=== PATIENT | female | born 1970 | race Caucasian/White ===

== ENCOUNTER 2017-10-09 11:42 | Emergency (ER) | payer BC ==
--- NOTE | 2017-10-09 13:50 | EDM.PDOC ---
ED HPI GENERAL MEDICAL PROBLEM - General Chief Complaint: ENT Problem Stated Complaint: L TOOTH PAIN Time Seen by Provider: 10/09/17 13:40 Source of Information: Reports: Patient - History of Present Illness INITIAL COMMENTS - FREE TEXT/NARRATIVE: Lesa presents today with complaints of left upper dental/facial pain for 4 days. She reports use of acetaminophen for pain. Pain is aching and stabbing in nature. She denies difficulty with eating or swallowing, however has sensitivity to liquids. She is unable to take ibuprofen due to gastritis/ulcer history. She has a pending dental appointment. left upper Pain Score (Numeric/FACES): 6 - Related Data Allergies Allergy/AdvReac Type Severity Reaction Status Date / Time nitrofurantoin Allergy Rash Verified 10/09/17 13:23 [From Macrobid] Penicillins Allergy Hives Verified 10/09/17 13:23 pseudoephedrine Allergy Hives Verified 10/09/17 13:23 [From Sudafed] sulfamethoxazole Allergy Hives Verified 10/09/17 13:23 [From Bactrim] trimethoprim [From Bactrim] Allergy Hives Verified 10/09/17 13:23 Home Meds: Home Meds Fenofibrate Nanocrystallized [Fenofibrate] 145 mg PO DAILY 10/09/17 [History] Omeprazole 20 mg PO DAILY 10/09/17 [History] Sertraline HCl [Zoloft] 200 mg PO DAILY 10/09/17 [History] traZODone 50 mg PO BEDTIME 10/09/17 [History] Past Medical History Psychiatric History: Reports: Anxiety, Depression - Past Surgical History GI Surgical History: Reports: Appendectomy, EGD Female Surgical History: Reports: Hysterectomy, Other (See Below) Other Female Surgeries/Procedures: partial hyst, one fallopian tube removed Social & Family History - Tobacco Use Smoking Status *Q: Current Every Day Smoker Years of Tobacco use: 30 Packs/Tins Daily: 0.5 - Recreational Drug Use Recreational Drug Use: No ED ROS ENT - Review of Systems Review Of Systems: See Below Constitutional: Denies: Fever, Chills, Malaise HEENT: Reports: Dental Pain, Other (Dental caries, exposed dentin). Denies: Ear Discharge, Ear Pain, Eye Pain, Nosebleed, Rhinitis, Sinus Problem, Throat Pain, Throat Swelling Respiratory: Reports: No Symptoms Cardiovascular: Reports: No Symptoms Endocrine: Reports: No Symptoms GI/Abdominal: Reports: No Symptoms Musculoskeletal: Reports: No Symptoms Skin: Reports: No Symptoms Neurological: Reports: No Symptoms Psychiatric: Reports: No Symptoms Hematologic/Lymphatic: Reports: No Symptoms Immunologic: Reports: No Symptoms ED EXAM, ENT - Physical Exam Exam: See Below Text/Narrative:: Lesa is an alert, oriented and pleasant 47 year old female presenting today for complaints of worsening dental pain of 4 days. She has a pending dental appointment next week. Use of acetaminophen has assisted with relief, however the pain has increased and she is worried she needs an antibiotic. Exam Limited By: No Limitations General Appearance: Alert, WD/WN, Mild Distress Eye Exam: Bilateral Eye: EOMI, Normal Inspection, PERRL Ears: Normal External Exam, Normal Canal, Hearing Grossly Normal, Normal TMs Nose: Normal Inspection, Normal Mucousa, No Blood Mouth/Throat: Normal Inspection, Normal Lips, Normal Oropharynx, Dental Tenderness, Gum Swelling, Other (dental caries with exposed dentin. swelling to area of #10,11,12,13. No discharge or drainage. Small area of tenderness/ fluctuance to left upper gum at #11,12. ). No: Muffled Voice, Oral Ulcers, Peritonsillar Mass, Pharyngeal Erythema, Tongue Swelling, Tonsillar Exudates, Tonsillar Swelling Head: Atraumatic, Normocephalic Neck: Normal Inspection, Supple, Non-Tender, Full Range of Motion. No: Lymphadenopathy (R), Lymphadenopathy (L) Respiratory/Chest: No Respiratory Distress, Lungs Clear, Normal Breath Sounds, No Accessory Muscle Use, Chest Non-Tender Cardiovascular: Normal Peripheral Pulses, Regular Rate, Rhythm, No Edema, No Gallop, No Murmur Back: Normal Inspection, Full Range of Motion. No: CVA Tenderness (R), CVA Tenderness (L) Extremities: Normal Inspection, Normal Range of Motion, Non-Tender, No Pedal Edema, Normal Capillary Refill Neurological: Alert, Oriented, CN II-XII Intact, Normal Cognition, Normal Gait, No Motor/Sensory Deficits Psychiatric: Normal Affect, Normal Mood Skin: Warm, Dry, Intact, Normal Color, No Rash Lymphatic: No Adenopathy Course - Vital Signs Last Recorded V/S: Last Vital Signs Temp 36.4 C 10/09/17 13:26 Pulse 84 10/09/17 13:26 Resp 16 10/09/17 13:26 BP 133/81 10/09/17 13:26 Pulse Ox 99 10/09/17 13:26 Departure - Departure Time of Disposition: 13:52 Disposition: Home, Self-Care 01 Condition: Fair Clinical Impression: Dental abscess - Discharge Information Instructions: Dental Abscess, [id number] Referrals: Gomez Starks PA-C [Primary Care Provider] - Forms: ED Department Discharge Additional Instructions: You are suffering from dental pain and abscess. Please take clindamycin 300mg by mouth four times a day for 7 days. You will have 4 tablets left. You can take acetaminophen 1000mg three times a day for pain. You can take tramadol as directed for pain if acetaminophen does not work well. Follow up with dentist as instructed. Return for worsening, issues or concerns. - Assessment/Plan Assessment:: Dental Abscess Plan: Patient suffering from dental pain and abscess. Please take clindamycin 300mg by mouth four times a day for 7 days. She will have 4 tablets left that she can discard. She can take acetaminophen 1000mg three times a day for pain. She can take tramadol as directed for pain if acetaminophen does not work well. Follow up with dentist as instructed. Return for worsening, issues or concerns. [place] and surrounding state [employer] checked, appropriate. Tramadol provided.
== END 2017-10-09 14:04 | disposition home or self-care (01) ==
LOC: JP.ED 11:42
DX: K04.7 Periapical abscess without sinus (principal); K02.9 Dental caries, unspecified; F41.9 Anxiety disorder, unspecified; F32.9 Major depressive disorder, single episode, unspecified; F17.210 Nicotine dependence, cigarettes, uncomplicated; Z88.0 Allergy status to penicillin; Z88.2 Allergy status to sulfonamides; Z88.8 Allergy status to other drugs, medicaments and biological substances; Z88.1 Allergy status to other antibiotic agents
CPT/HCPCS: 99283

== ENCOUNTER 2018-07-07 07:37 | Day surgery (SDC) | payer BC ==
[~2018-07-07 07:37] MED LIST: Bupivacaine 0.5% 50 ML MDV ONE; Lidocaine 1% with EPINEPHrine 1:100,000 50 ML MDV ONE
[2018-07-07] MEDS ORDERED: Propofol 200 MG/20 ML SDV ONE (08:04)
[2018-07-07] MEDS ORDERED: Ondansetron 4 MG/2 ML SDV ONE (08:04)
[2018-07-07] MEDS ORDERED: fentaNYL 250 MCG/5 ML SDV ONE (08:04)
[2018-07-07] MEDS ORDERED: Rocuronium 50 MG/5 ML Vial ONE (08:04)
[2018-07-07] MEDS ORDERED: Neostigmine Methylsulfate 1 MG/ML 5 ML Syringe ONE (08:04)
[2018-07-07] MEDS ORDERED: Glycopyrrolate 0.2 MG/ML 5 ML MDV ONE (08:04)
[2018-07-07] MEDS ORDERED: Dexamethasone 4 MG/ML SDV ONE ×2 (08:04→09:52)
[2018-07-07] MEDS ORDERED: Sodium Chloride 0.9% 1,000 ML IV SCH (08:15)
[2018-07-07] MEDS ORDERED: Albuterol/Ipratropium 3.0-0.5 MG/3 ML Neb Soln NEB PRN (08:18)
[2018-07-07] MEDS ORDERED: metroNIDAZOLE/Normal Saline 500 MG in Premix Bag 1 BAG IV ONE (09:15)
[2018-07-07] MEDS ORDERED: ceFAZolin 2 GM in Premix Bag 1 BAG IV ONE (09:15)
[2018-07-07] MEDS ORDERED: Acetaminophen/HYDROcodone 325-10 MG Tab PO PRN (09:54)
[2018-07-07] MEDS ORDERED: diphenhydrAMINE 50 MG/ML SDV IVPUSH PRN (09:54)
[2018-07-07] MEDS ORDERED: fentaNYL 100 MCG/2 ML SDV IVPUSH PRN (09:54)
[2018-07-07] MEDS ORDERED: Zolpidem 5 MG Tab PO PRN (09:54)
[2018-07-07] MEDS ORDERED: Benzocaine/Cetylpyridinium/Menthol Lozenge MUCMEM PRN (09:54)
[2018-07-07] MEDS ORDERED: Bisacodyl 5 MG Tab PO PRN (09:54)
[2018-07-07] MEDS ORDERED: hydrOXYzine HCl 100 MG/2 ML SDV IM PRN (09:54)
[2018-07-07] MEDS ORDERED: Ketorolac 60 MG/2 ML SDV ONE (10:19)
[2018-07-07] MEDS ORDERED: Albuterol/Ipratropium 3.0-0.5 MG/3 ML Neb Soln NEB ONE (10:35)
[2018-07-07] MEDS ORDERED: hydrOXYzine HCl 100 MG/2 ML SDV IM ONE (11:00)
[2018-07-07] MEDS ORDERED: fentaNYL 100 MCG/2 ML SDV IVPUSH ONE (11:00)
--- NOTE | 2018-07-10 08:25 | OR ---
DATE OF PROCEDURE: 07/07/2018 PROCEDURE: Laparoscopic cholecystectomy. PREOPERATIVE DIAGNOSIS: Cholecystitis. POSTOPERATIVE DIAGNOSIS: Cholecystitis. COMPLICATIONS: None. 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 ANESTHESIA: General/local. INDICATIONS: Right lower quadrant abdominal pain, nausea, vomiting, made worse by eating greasy or fatty foods. PROCEDURE DETAILS: The patient was placed in supine position. A supraumbilical curvilinear incision was made. A Veress needle was used to enter the abdomen without abnormality. A drop test was performed without abnormality. An Optiview trocar was then inserted after insufflation. No evidence of enterotomy or injury noted. The additional 10 and two 5 mm ports were entered under direct visualization. The gallbladder was retracted cephalad. The infundibulum was retracted inferolaterally. Using blunt dissection a "clear view" of the gallbladder was obtained with a single pulsatile structure entering the gallbladder and a single nonpulsatile structure in the gallbladder. Of note, the cystic artery was actually a very small artery and was addressed with Harmonic Scalpel. The duct was clipped x3 and transected. The remaining one-third of the gallbladder was removed without difficulty of the gallbladder bed. The gallbladder was delivered from the abdomen without difficulty. No significant leakage was noted. The liver bed was inspected for bleeding, which none was noted. The pressure was dropped. No bleeding was noted. The abdomen subsequently insufflated and was subsequently irrigated and the liquid was removed. The air was removed. The ports were irrigated. Wounds were closed with 3-0 Vicryl and 4-0 Vicryl interrupted running fashion. Dermabond was applied. The patient tolerated the procedure well. Jayesh Alcazar MD /[id number]
== END 2018-07-07 14:30 | disposition home or self-care (01) ==
LOC: JP.SDS 07:37 → JP.MS 09:54 → JP.SDS 14:30
PROVIDERS: ATTEND Surgery
DX: K81.1 Chronic cholecystitis (principal); N39.0 Urinary tract infection, site not specified; E78.5 Hyperlipidemia, unspecified; F33.42 Major depressive disorder, recurrent, in full remission; F17.210 Nicotine dependence, cigarettes, uncomplicated; Z79.899 Other long term (current) drug therapy; Z88.0 Allergy status to penicillin; Z88.1 Allergy status to other antibiotic agents; Z91.048 Other nonmedicinal substance allergy status
CPT/HCPCS: 47562; A9270; J0690; J1100; J1885; J2405; J2704; J2710; J3010; J3410; J3490; J7030; 88304; J7620-GY

== ENCOUNTER 2018-07-08 21:21 | Inpatient (IN) | payer BC ==
[2018-07-08] MEDS ORDERED: Albuterol 0.083% 2.5 MG/3 ML Neb Soln NEB ONE (21:49)
--- NOTE | 2018-07-08 21:56 | EDM.PDOC ---
ED HPI GENERAL MEDICAL PROBLEM - General Chief Complaint: General Stated Complaint: COUGH Time Seen by Provider: 07/08/18 21:56 Source of Information: Reports: Patient History Limitations: Reports: No Limitations - History of Present Illness INITIAL COMMENTS - FREE TEXT/NARRATIVE: pt arrived feeling very sob and tight in her chest. She had a raza today and began to feel very sob tonight. Onset: Today, Sudden Duration: Hour(s): Location: Reports: Chest Associated Symptoms: Reports: Cough, Shortness of Breath - Related Data Allergies Allergy/AdvReac Type Severity Reaction Status Date / Time nitrofurantoin Allergy Rash Verified 07/08/18 21:39 [From Macrobid] Penicillins Allergy Hives Verified 07/08/18 21:39 pseudoephedrine Allergy Hives Verified 07/08/18 21:39 [From Sudafed] sulfamethoxazole Allergy Hives Verified 07/08/18 21:39 [From Bactrim] trimethoprim [From Bactrim] Allergy Hives Verified 07/08/18 21:39 metal Allergy Rash Uncoded 07/08/18 21:39 Home Meds: Home Meds Fenofibrate Nanocrystallized [Fenofibrate] 145 mg PO DAILY 10/09/17 [History] Sertraline HCl [Zoloft] 200 mg PO DAILY 10/09/17 [History] traZODone 50 mg PO BEDTIME 10/09/17 [History] diphenhydrAMINE HCl [Benadryl Allergy] 25 mg PO ASDIRECTED PRN 05/19/18 [History ] Hydrocodone/Acetaminophen [Hydrocodon-Acetaminophen 5-325] 07/08/18 [History] Past Medical History HEENT History: Reports: Impaired Vision Gastrointestinal History: Reports: Cholelithiasis, Hiatal Hernia Genitourinary History: Reports: None 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 bladder sling Social & Family History - Family History Family Medical History: Noncontributory - Tobacco Use Smoking Status *Q: Current Every Day Smoker Years of Tobacco use: 34 Packs/Tins Daily: 0.5 - Caffeine Use Caffeine Use: Reports: Soda ED ROS GENERAL - Review of Systems Review Of Systems: See Below Constitutional: Reports: Weakness, Other (marked sob) HEENT: Reports: No Symptoms Respiratory: Reports: Shortness of Breath, Cough Cardiovascular: Reports: No Symptoms Endocrine: Reports: No Symptoms GI/Abdominal: Reports: No Symptoms, Other (pt had her GB removed today and now she is very sob. ) : Reports: No Symptoms Musculoskeletal: Reports: No Symptoms Skin: Reports: No Symptoms Neurological: Reports: No Symptoms Psychiatric: Reports: No Symptoms ED EXAM, GENERAL - Physical Exam Exam: See Below Free Text/Narrative:: pt arrived with very low O2 sats. She had her GB out today. She got home and she gradually got more sob and she began to do alot of couighing. She did not have a fever. She clinically felt Exam Limited By: No Limitations General Appearance: Alert, Anxious, Severe Distress Ears: Normal TMs Nose: Normal Inspection Throat/Mouth: Normal Inspection Head: Atraumatic Neck: Normal Inspection Respiratory/Chest: Decreased Breath Sounds, Wheezing Cardiovascular: Regular Rate, Rhythm, Tachycardia GI/Abdominal: Soft, Other (pt had her GB removed today. ) (Female) Exam: Deferred Rectal (Female) Exam: Deferred Back Exam: Normal Inspection Extremities: Normal Inspection Neurological: Alert, Oriented, Normal Cognition Psychiatric: Anxious Course - Vital Signs Last Recorded V/S: Last Vital Signs Temp 37.7 C 07/08/18 21:47 Pulse 112 H 07/08/18 23:07 Resp 20 07/08/18 23:07 BP 112/58 L 07/08/18 23:07 Pulse Ox 83 L 07/08/18 23:07 - Orders/Labs/Meds Orders: Active Orders 24 hr Category Date Time Status EKG Documentation Completion [RC] ASDIRECTED Care 07/08/18 22:14 Active RT Aerosol Therapy [RC] ASDIRECTED Care 07/08/18 21:49 Active RT Aerosol Therapy [RC] ASDIRECTED Care 07/08/18 23:17 Ordered Ang Chest [CT] Stat Exams 07/08/18 22:27 Taken Iopamidol [Isovue-370 (76%)] Med 07/08/18 22:45 Active 100 ml IV . DIRECTED Sodium Chloride 0.9% [Normal Saline] 100 ml Med 07/08/18 22:45 Active IV ASDIRECTED EKG 12 Lead [EK] Routine Ther 07/08/18 22:14 Ordered Medication Orders Sodium Chloride (Normal Saline) 100 mls @ 3 mls/sec IV ASDIRECTED CARRIE Last Admin: 07/08/18 22:49 Dose: 3 mls/sec Iopamidol (Isovue-370 (76%)) 100 ml IV . DIRECTED CARRIE Last Admin: 07/08/18 22:49 Dose: 100 ml Labs: Laboratory Tests 07/08/18 07/08/18 07/08/18 Range/Units 21:59 21:59 22:16 WBC 9.8 (4.5-11.0) K/uL RBC 4.38 (3.30-5.50) M/uL Hgb 12.4 (12.0-15.0) g/dL Hct 37.8 (36.0-48.0) % MCV 86 (80-98) fL MCH 28 (27-31) pg MCHC 33 (32-36) % Plt Count 196 (150-400) K/uL Neut % (Auto) 71 H (36-66) % Lymph % (Auto) 24 (24-44) % [place] % (Auto) 4 (2-6) % Eos % (Auto) 2 (2-4) % Baso % (Auto) 0 (0-1) % D-Dimer, Quantitative (0.0-400.0) ng/mL Puncture Site Rt brachial ABG pH 7.440 (7.350-7.450) ABG pCO2 37.5 (35.0-42.0) mmHg ABG pO2 42.5 L* (75.0-100.0) mmHg ABG HCO3 25.1 (22.0-26.0) mmol/L ABG Total CO2 22.5 (21.0-25.0) mmol/L ABG O2 Saturation 79.7 L (95.0-98.0) % ABG O2 Content 13.6 L (15.0-23.0) %vol ABG Base Excess 1.5 mm/L ABG Hemoglobin 12.5 (12.0-16.0) g/dL ABG Oxyhemoglobin 77.8 % ABG Carboxyhemoglobin 1.8 H (0.0-1.6) % ABG Methemoglobin 0.6 % Sumit Test Passed O2 Delivery Device Nasal cannula Sodium 140 (140-148) mmol/L Potassium 3.8 (3.6-5.2) mmol/L Chloride 105 (100-108) mmol/L Carbon Dioxide 29 (21-32) mmol/L Anion Gap 6.1 (5.0-14.0) mmol/L BUN 15 (7-18) mg/dL Creatinine 1.0 (0.6-1.0) mg/dL Est Cr Clr Drug Dosing 60.06 mL/min Estimated GFR (MDRD) 59 L (>60) Glucose 118 H (74-106) mg/dL Calcium 8.5 (8.5-10.1) mg/dL Total Bilirubin 0.3 (0.2-1.0) mg/dL AST 50 H (15-37) U/L ALT 47 (12-78) U/L Alkaline Phosphatase 75 (46-116) U/L Troponin I (0.000-0.056) ng/mL Total Protein 6.4 (6.4-8.2) g/dL Albumin 2.8 L (3.4-5.0) g/dL Globulin 3.6 H (2.3-3.5) g/dL Albumin/Globulin Ratio 0.8 L (1.2-2.2) 07/08/18 07/08/18 Range/Units 22:16 22:16 WBC (4.5-11.0) K/uL RBC (3.30-5.50) M/uL Hgb (12.0-15.0) g/dL Hct (36.0-48.0) % MCV (80-98) fL MCH (27-31) pg MCHC (32-36) % Plt Count (150-400) K/uL Neut % (Auto) (36-66) % Lymph % (Auto) (24-44) % [place] % (Auto) (2-6) % Eos % (Auto) (2-4) % Baso % (Auto) (0-1) % D-Dimer, Quantitative 749 H (0.0-400.0) ng/mL Puncture Site ABG pH (7.350-7.450) ABG pCO2 (35.0-42.0) mmHg ABG pO2 (75.0-100.0) mmHg ABG HCO3 (22.0-26.0) mmol/L ABG Total CO2 (21.0-25.0) mmol/L ABG O2 Saturation (95.0-98.0) % ABG O2 Content (15.0-23.0) %vol ABG Base Excess mm/L ABG Hemoglobin (12.0-16.0) g/dL ABG Oxyhemoglobin % ABG Carboxyhemoglobin (0.0-1.6) % ABG Methemoglobin % Sumit Test O2 Delivery Device Sodium (140-148) mmol/L Potassium (3.6-5.2) mmol/L Chloride (100-108) mmol/L Carbon Dioxide (21-32) mmol/L Anion Gap (5.0-14.0) mmol/L BUN (7-18) mg/dL Creatinine (0.6-1.0) mg/dL Est Cr Clr Drug Dosing mL/min Estimated GFR (MDRD) (>60) Glucose (74-106) mg/dL Calcium (8.5-10.1) mg/dL Total Bilirubin (0.2-1.0) mg/dL AST (15-37) U/L ALT (12-78) U/L Alkaline Phosphatase (46-116) U/L Troponin I < 0.017 (0.000-0.056) ng/mL Total Protein (6.4-8.2) g/dL Albumin (3.4-5.0) g/dL Globulin (2.3-3.5) g/dL Albumin/Globulin Ratio (1.2-2.2) Meds: Medications Generic Name Dose Route Start Last Admin Trade Name Freq PRN Reason Stop Dose Admin Sodium Chloride 100 mls @ 3 mls/sec 07/08/18 22:45 07/08/18 22:49 Normal Saline IV 3 mls/sec ASDIRECTED CARRIE Administration Iopamidol 100 ml 07/08/18 22:45 07/08/18 22:49 Isovue-370 (76%) IV 100 ml . DIRECTED CARRIE Administration Discontinued Medications Generic Name Dose Route Start Last Admin Trade Name Freq PRN Reason Stop Dose Admin Albuterol 2.5 mg 07/08/18 21:49 07/08/18 21:57 Proventil Neb Soln NEB 07/08/18 21:50 2.5 mg ONETIME ONE Administration Albuterol/Ipratropium 3 ml 07/08/18 23:16 Duoneb 3.0-0.5 Mg/3 Ml NEB 07/08/18 23:17 ONETIME ONE Methylprednisolone Sodium Succinate 125 mg 07/08/18 23:16 Solu-Medrol IVPUSH 07/08/18 23:17 ONETIME ONE - Re-Assessments/Exams Free Text/Narrative Re-Assessment/Exam: 07/08/18 23:25 pt had o2 sats in the 70s. She is quite tight in her chest. She feels like she is not able to fill her lungs. She has long history of smoking--35 years. She had no leg tenderness. Her abdoman was not distended. Her blood gasses show a very low o2 sat. A lung scan was done which was neg for PE. She does have a ground glass infiltrate present. She states she did have a cough prior to surgery. Departure - Departure Time of Disposition: 23:28 Disposition: Admitted As Inpatient 67 Condition: Fair Clinical Impression: Bronchospasm, Pneumonia, Status post cholecystectomy - Discharge Information Referrals: Misty Maurer, RN [Primary Care Provider] - Forms: ED Department Discharge Care Plan Goals: admit to Dr Unger. - My Orders Last 24 Hours: My Active Orders 07/08/18 21:49 RT Aerosol Therapy [RC] ASDIRECTED 07/08/18 22:14 EKG Documentation Completion [RC] ASDIRECTED EKG 12 Lead [EK] Routine 07/08/18 22:27 Ang Chest [CT] Stat 07/08/18 22:45 Iopamidol [Isovue-370 (76%)] 100 ml IV . DIRECTED Sodium Chloride 0.9% [Normal Saline] 100 ml IV ASDIRECTED 07/08/18 23:17 RT Aerosol Therapy [RC] ASDIRECTED - Assessment/Plan Last 24 Hours: My Active Orders 07/08/18 21:49 RT Aerosol Therapy [RC] ASDIRECTED 07/08/18 22:14 EKG Documentation Completion [RC] ASDIRECTED EKG 12 Lead [EK] Routine 07/08/18 22:27 Ang Chest [CT] Stat 07/08/18 22:45 Iopamidol [Isovue-370 (76%)] 100 ml IV . DIRECTED Sodium Chloride 0.9% [Normal Saline] 100 ml IV ASDIRECTED 07/08/18 23:17 RT Aerosol Therapy [RC] ASDIRECTED
[2018-07-08] MEDS ORDERED: Iopamidol 755 Mg/ML 100 ML Bottle IV SCH (22:45)
[2018-07-08] MEDS ORDERED: Sodium Chloride 0.9% 100 ML IV SCH (22:45)
[2018-07-08] MEDS ORDERED: Albuterol/Ipratropium 3.0-0.5 MG/3 ML Neb Soln NEB ONE (23:16)
[2018-07-08] MEDS ORDERED: methylPREDNISolone Sodium Succinate 125 MG/2 ML SDV IVPUSH ONE (23:16)
[2018-07-08] MEDS ORDERED: Acetaminophen 325 MG Tab PO ONE (23:41)
--- NOTE | 2018-07-09 01:04 | PCM.HP ---
H&P History of Present Illness - General Date of Service: 07/09/18 Admit Problem/Dx: Admission Diagnosis/Problem Admission Diagnosis/Problem Asthma Source of Information: Patient, Family, Provider, RN Notes Reviewed History Limitations: Reports: No Limitations - History of Present Illness Initial Comments - Free Text/Narative: Ms. Conrad is a 48-year-old woman who is admitted through the emergency department with shortness of breath and cough secondary to pneumonia with acute asthma and hypoxia. For the last week she is experienced upper respiratory tract infection with cough this seemed to be slowly improving and was somewhat better on Tuesday when she underwent laparoscopic cholecystectomy. She received nebulizer treatment prior to surgery. In the postoperative period experience shortness of breath with modest hypoxia requiring supplemental oxygen. She improved enough to be discharged to home from the outpatient area of the hospital. Since then she has unfortunately had ongoing difficulty with significant shortness of breath and cough. Shortness of breath was severe enough that during the night she was unable to sleep. She presented to the emergency department this evening for further evaluation and management. On initial presentation was noted to be significantly hypoxic with oxygen saturations in the 70s on room air. Blood gases showed a PO2 of 42, no evidence of CO2 retention. Chest x-ray showed no obvious infiltrates. CT scan of the chest was obtained and shows no evidence of pulmonary emboli but did show bilateral groundglass infiltrates consistent with infection versus inflammation. She's felt modestly improved since admission with adequate oxygenation on supplemental oxygen and has received nebulizer therapy as well as IV Solu-Medrol. - Related Data Allergies/Adverse Reactions: Allergies Allergy/AdvReac Type Severity Reaction Status Date / Time nitrofurantoin Allergy Rash Verified 07/08/18 21:39 [From Macrobid] Penicillins Allergy Hives Verified 07/08/18 21:39 pseudoephedrine Allergy Hives Verified 07/08/18 21:39 [From Sudafed] sulfamethoxazole Allergy Hives Verified 07/08/18 21:39 [From Bactrim] trimethoprim [From Bactrim] Allergy Hives Verified 07/08/18 21:39 metal Allergy Rash Uncoded 07/08/18 21:39 Home Medications: Home Meds Fenofibrate Nanocrystallized [Fenofibrate] 145 mg PO DAILY 10/09/17 [History] Sertraline HCl [Zoloft] 200 mg PO DAILY 10/09/17 [History] traZODone 50 mg PO BEDTIME 10/09/17 [History] diphenhydrAMINE HCl [Benadryl Allergy] 25 mg PO ASDIRECTED PRN 05/19/18 [History ] Hydrocodone/Acetaminophen [Hydrocodon-Acetaminophen 5-325] 07/08/18 [History] Past Medical History HEENT History: Reports: Impaired Vision Gastrointestinal History: Reports: Cholelithiasis, Hiatal Hernia Genitourinary History: Reports: None 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 bladder sling Social & Family History - Family History Family Medical History: Noncontributory - Tobacco Use Smoking Status *Q: Current Every Day Smoker Years of Tobacco use: 34 Packs/Tins Daily: 0.5 - Caffeine Use Caffeine Use: Reports: Soda H&P Review of Systems - Review of Systems: Review Of Systems: See Below General: Reports: Weakness. Denies: Fever, Chills HEENT: Reports: No Symptoms Pulmonary: Reports: Shortness of Breath, Wheezing, Cough. Denies: Pleuritic Chest Pain, Sputum, Hemoptysis Cardiovascular: Reports: Dyspnea on Exertion. Denies: Chest Pain, Palpitations , Orthopnea, PND, Edema, Lightheadedness Gastrointestinal: Reports: Abdominal Pain, Anorexia, Distension. Denies: Black Stool, Bloody Stool, Constipation, Diarrhea, Difficulty Swallowing, Nausea, Vomiting Genitourinary: Reports: No Symptoms Musculoskeletal: Reports: No Symptoms Skin: Reports: No Symptoms Psychiatric: Reports: No Symptoms Neurological: Reports: Headache. Denies: Confusion, Dizziness, Numbness Hematologic/Lymphatic: Reports: No Symptoms Immunologic: Reports: No Symptoms Exam - Exam Exam: See Below - Vital Signs Vital Signs: Last Vital Signs Temp 99.9 F 07/08/18 21:47 Pulse 112 H 07/08/18 23:07 Resp 20 07/08/18 23:07 BP 112/58 L 07/08/18 23:07 Pulse Ox 83 L 07/08/18 23:07 Weight: 209 lb 3.499 oz - Exam Quality Assessment: Supplemental Oxygen, DVT Prophylaxis General: Alert, Oriented, Cooperative, Moderate Distress HEENT: Conjunctiva Clear, Hearing Intact, Mucosa Moist & [place], Normal Nasal Septum, Posterior Pharynx Clear, Pupils Equal Neck: Supple, Trachea Midline, +2 Carotid Pulse wo Bruit Lungs: Rhonchi, Wheezing. No: Normal Respiratory Effort, Crackles, Rales Cardiovascular: Normal S1, Normal S2, Tachycardia. No: Systolic Murmur, Diastolic Murmur GI/Abdominal Exam: Soft, No Organomegaly, Distended, Tender. No: Guarding, Rigid, Rebound Back Exam: Normal Inspection, Full Range of Motion Extremities: Non-Tender, No Pedal Edema Skin: Warm, Dry, Intact Neurological: Cranial Nerves Intact, Strength Equal Bilateral, Normal Speech, Normal Tone, Sensation Intact. No: Focal Deficit - Patient Data Lab Results Last 24 hrs: Laboratory Results - last 24 hr 07/08/18 07/08/18 07/08/18 Range/Units 21:59 21:59 22:16 WBC 9.8 (4.5-11.0) K/uL RBC 4.38 (3.30-5.50) M/uL Hgb 12.4 (12.0-15.0) g/dL Hct 37.8 (36.0-48.0) % MCV 86 (80-98) fL MCH 28 (27-31) pg MCHC 33 (32-36) % Plt Count 196 (150-400) K/uL Neut % (Auto) 71 H (36-66) % Lymph % (Auto) 24 (24-44) % [place] % (Auto) 4 (2-6) % Eos % (Auto) 2 (2-4) % Baso % (Auto) 0 (0-1) % D-Dimer, Quantitative (0.0-400.0) ng/mL Puncture Site Rt brachial ABG pH 7.440 (7.350-7.450) ABG pCO2 37.5 (35.0-42.0) mmHg ABG pO2 42.5 L* (75.0-100.0) mmHg ABG HCO3 25.1 (22.0-26.0) mmol/L ABG Total CO2 22.5 (21.0-25.0) mmol/L ABG O2 Saturation 79.7 L (95.0-98.0) % ABG O2 Content 13.6 L (15.0-23.0) %vol ABG Base Excess 1.5 mm/L ABG Hemoglobin 12.5 (12.0-16.0) g/dL ABG Oxyhemoglobin 77.8 % ABG Carboxyhemoglobin 1.8 H (0.0-1.6) % ABG Methemoglobin 0.6 % Sumit Test Passed O2 Delivery Device Nasal cannula Sodium 140 (140-148) mmol/L Potassium 3.8 (3.6-5.2) mmol/L Chloride 105 (100-108) mmol/L Carbon Dioxide 29 (21-32) mmol/L Anion Gap 6.1 (5.0-14.0) mmol/L BUN 15 (7-18) mg/dL Creatinine 1.0 (0.6-1.0) mg/dL Est Cr Clr Drug Dosing 60.06 mL/min Estimated GFR (MDRD) 59 L (>60) Glucose 118 H (74-106) mg/dL Calcium 8.5 (8.5-10.1) mg/dL Total Bilirubin 0.3 (0.2-1.0) mg/dL AST 50 H (15-37) U/L ALT 47 (12-78) U/L Alkaline Phosphatase 75 (46-116) U/L Troponin I (0.000-0.056) ng/mL Total Protein 6.4 (6.4-8.2) g/dL Albumin 2.8 L (3.4-5.0) g/dL Globulin 3.6 H (2.3-3.5) g/dL Albumin/Globulin Ratio 0.8 L (1.2-2.2) 07/08/18 07/08/18 Range/Units 22:16 22:16 WBC (4.5-11.0) K/uL RBC (3.30-5.50) M/uL Hgb (12.0-15.0) g/dL Hct (36.0-48.0) % MCV (80-98) fL MCH (27-31) pg MCHC (32-36) % Plt Count (150-400) K/uL Neut % (Auto) (36-66) % Lymph % (Auto) (24-44) % [place] % (Auto) (2-6) % Eos % (Auto) (2-4) % Baso % (Auto) (0-1) % D-Dimer, Quantitative 749 H (0.0-400.0) ng/mL Puncture Site ABG pH (7.350-7.450) ABG pCO2 (35.0-42.0) mmHg ABG pO2 (75.0-100.0) mmHg ABG HCO3 (22.0-26.0) mmol/L ABG Total CO2 (21.0-25.0) mmol/L ABG O2 Saturation (95.0-98.0) % ABG O2 Content (15.0-23.0) %vol ABG Base Excess mm/L ABG Hemoglobin (12.0-16.0) g/dL ABG Oxyhemoglobin % ABG Carboxyhemoglobin (0.0-1.6) % ABG Methemoglobin % Sumit Test O2 Delivery Device Sodium (140-148) mmol/L Potassium (3.6-5.2) mmol/L Chloride (100-108) mmol/L Carbon Dioxide (21-32) mmol/L Anion Gap (5.0-14.0) mmol/L BUN (7-18) mg/dL Creatinine (0.6-1.0) mg/dL Est Cr Clr Drug Dosing mL/min Estimated GFR (MDRD) (>60) Glucose (74-106) mg/dL Calcium (8.5-10.1) mg/dL Total Bilirubin (0.2-1.0) mg/dL AST (15-37) U/L ALT (12-78) U/L Alkaline Phosphatase (46-116) U/L Troponin I < 0.017 (0.000-0.056) ng/mL Total Protein (6.4-8.2) g/dL Albumin (3.4-5.0) g/dL Globulin (2.3-3.5) g/dL Albumin/Globulin Ratio (1.2-2.2) Result Diagrams: 07/08/18 21:59 07/08/18 21:59 *Q Meaningful Use (ADM) - VTE Risk Assess *Q Each Risk Factor Represents 1 Point: Age 41 - 59 years, Obesity ( BMI > 25 kg/m2 ), Serious lung disease including pneumonia Total Score 1 Point Risk Factors: 3 Each Risk Factor Represents 2 Points: None Total Score 2 Point Risk Factors: 0 Each Risk Factor Represents 3 Points: None Total Score 3 Point Risk Factors: 0 Each Risk Factor Represents 5 Points: None Total Score 5 Point Risk Factors: 0 Venous Thromboembolism Risk Factor Score *Q: 3 Problem List Initiated/Reviewed/Updated: Yes Orders Last 24hrs: Active Orders 24 hr Category Date Time Status Patient Status Manage Transfer [TRANSFER] Routine ADT 07/09/18 00:54 Ordered EKG Documentation Completion [RC] ASDIRECTED Care 07/08/18 22:14 Active RT Aerosol Therapy [RC] ASDIRECTED Care 07/08/18 21:49 Active RT Aerosol Therapy [RC] ASDIRECTED Care 07/08/18 23:17 Active Ang Chest [CT] Stat Exams 07/08/18 22:27 Taken Iopamidol [Isovue-370 (76%)] Med 07/08/18 22:45 Active 100 ml IV . DIRECTED Sodium Chloride 0.9% [Normal Saline] 100 ml Med 07/08/18 22:45 Active IV ASDIRECTED Resuscitation Status Routine Resus Stat 07/09/18 00:56 Ordered EKG 12 Lead [EK] Routine Ther 07/08/18 22:14 Ordered Medication Orders Sodium Chloride (Normal Saline) 100 mls @ 3 mls/sec IV ASDIRECTED CARRIE Last Admin: 07/08/18 22:49 Dose: 3 mls/sec Iopamidol (Isovue-370 (76%)) 100 ml IV . DIRECTED [facility], [facility]–1983 Last Admin: 07/08/18 22:49 Dose: 100 ml Assessment/Plan Comment:: ASSESSMENT AND PLAN BILATERAL PNEUMONIA-viral versus atypical versus bacterial, most likely viral given recent symptoms of upper respiratory tract infection. Complicated by reactive airway process and significant hypoxia. Normal white blood cell count and no significant temperature elevation thus far. -Blood cultures pending -Broad-spectrum IV antibiotics pending culture results; IV meropenem and azithromycin -IV fluids for hydration ACUTE ASTHMA EXACERBATION-bilateral expiratory wheezing, no previous history of reactive airway disease -Nebulized albuterol every 2 hours as needed -Solu-Medrol 40 mg IV every 6 hours HYPOXIC RESPIRATORY COMPROMISE-secondary to bilateral infiltrates and reactive airway process -Supplemental oxygen as needed -Consider use of BiPAP if she shows any evidence of further respiratory deterioration STATUS POST LAPAROSCOPIC CHOLECYSTECTOMY MAINTENANCE ISSUES -DVT prophylaxis; Lovenox 40 mg subcutaneous daily -GI prophylaxis; not indicated -Arvizu catheter; not indicated -Nutrition; regular diet -Nicotine dependence; not required CODE STATUS-FULL CODE ADMISSION STATUS-patient will be admitted to inpatient status, expect at least a 2 night hospital stay for evaluation and management of problems as outlined above. At the time of this admission I do not reasonably expected evaluation and management of this problem will require more than a 96 hour hospital stay. DISPOSITION-anticipate discharge to home after the hospital stay. PRIMARY CARE PROVIDER-Misty Maurer
[2018-07-09] MEDS ORDERED: Lactated Ringers 1,000 ML IV SCH (01:28)
[2018-07-09] MEDS ORDERED: Acetaminophen/HYDROcodone 325-5 MG Tab PO PRN (01:28)
[2018-07-09] MEDS ORDERED: Magnesium Hydroxide 400 MG/5 ML Susp 30 ML Cup PO PRN (01:28)
[2018-07-09] MEDS ORDERED: Sodium Chloride 0.9% 10 ML Syringe FLUSH PRN (01:28)
[2018-07-09] MEDS ORDERED: Ondansetron 4 MG/2 ML SDV IV PRN (01:28)
[2018-07-09] MEDS ORDERED: Polyethylene Glycol 3350 Powder 17 GM Packet PO PRN (01:28)
[2018-07-09] MEDS ORDERED: Levofloxacin/Dextrose 5%-Water 750 MG in Premix Bag 1 BAG IV SCH (01:28)
[2018-07-09] MEDS ORDERED: Enoxaparin 40 MG/0.4 ML Syringe SUBCUT SCH (01:28)
[2018-07-09] MEDS ORDERED: Meropenem 1 GM in Sodium Chloride 0.9% 100 ML IV SCH (01:28)
[2018-07-09] MEDS ORDERED: Acetaminophen 325 MG Tab PO PRN (01:28)
[2018-07-09] MEDS: methylPREDNISolone Sodium Succinate 40 MG/1 ML SDV IVPUSH SCH ×5 (02:07→20:44)
[2018-07-09] MEDS: Lactobacillus Rhamnosus GG (Probiotic) Cap PO SCH ×3 (02:07→20:44)
[2018-07-09] MEDS: Codeine/guaiFENesin 100mg-10 MG/5 ML Syrup 10 ML Cup PO PRN ×2 (02:18→07:34)
[2018-07-09] MEDS ORDERED: Acetaminophen/HYDROcodone 325-5 MG Tab PO SCH (02:30)
[2018-07-09] MEDS: Albuterol 0.083% 2.5 MG/3 ML Neb Soln NEB PRN ×2 (05:55→08:18)
[2018-07-09] MEDS: Fenofibrate,Micronized 67 MG Cap PO SCH (08:16)
[2018-07-09] MEDS: Sertraline 50 MG Tab PO SCH (08:16)
--- NOTE | 2018-07-09 09:44 | PCM.PN ---
- General Info Date of Service: 07/09/18 Subjective Update: Ms. Conrad has shown modest improvement since admission, somewhat better oxygenation. Heart rate and respiratory rate remained mildly elevated. Continues to have difficulty with recurrent cough which is been nonproductive for the most part. There has been no significant temperature elevation and her white blood cell count remains within normal range. - Review of Systems General: Denies: Fever, Weakness, Chills Pulmonary: Reports: Shortness of Breath, Cough. Denies: Pleuritic Chest Pain, Sputum, Hemoptysis, Wheezing Cardiovascular: Reports: Dyspnea on Exertion. Denies: Chest Pain, Palpitations , Orthopnea, PND, Edema Gastrointestinal: Reports: No Symptoms - Patient Data Vitals - Most Recent: Last Vital Signs Temp 97.7 F 07/09/18 07:18 Pulse 102 H 07/09/18 07:18 Resp 20 07/09/18 07:18 BP 145/69 H 07/09/18 07:18 Pulse Ox 93 L 07/09/18 07:18 Weight - Most Recent: 209 lb 3.499 oz I&O - Last 24 Hours: Intake & Output 07/08/18 07/09/18 07/09/18 22:59 06:59 14:59 Intake Total 954 Output Total 225 250 Balance 729 -250 Lab Results Last 24 Hours: Laboratory Results - last 24 hr 07/08/18 07/08/18 07/08/18 Range/Units 21:59 21:59 22:16 WBC 9.8 (4.5-11.0) K/uL RBC 4.38 (3.30-5.50) M/uL Hgb 12.4 (12.0-15.0) g/dL Hct 37.8 (36.0-48.0) % MCV 86 (80-98) fL MCH 28 (27-31) pg MCHC 33 (32-36) % Plt Count 196 (150-400) K/uL Neut % (Auto) 71 H (36-66) % Lymph % (Auto) 24 (24-44) % [place] % (Auto) 4 (2-6) % Eos % (Auto) 2 (2-4) % Baso % (Auto) 0 (0-1) % D-Dimer, Quantitative (0.0-400.0) ng/mL Puncture Site Rt brachial ABG pH 7.440 (7.350-7.450) ABG pCO2 37.5 (35.0-42.0) mmHg ABG pO2 42.5 L* (75.0-100.0) mmHg ABG HCO3 25.1 (22.0-26.0) mmol/L ABG Total CO2 22.5 (21.0-25.0) mmol/L ABG O2 Saturation 79.7 L (95.0-98.0) % ABG O2 Content 13.6 L (15.0-23.0) %vol ABG Base Excess 1.5 mm/L ABG Hemoglobin 12.5 (12.0-16.0) g/dL ABG Oxyhemoglobin 77.8 % ABG Carboxyhemoglobin 1.8 H (0.0-1.6) % ABG Methemoglobin 0.6 % Sumit Test Passed O2 Delivery Device Nasal cannula Oxygen Flow Rate L Sodium 140 (140-148) mmol/L Potassium 3.8 (3.6-5.2) mmol/L Chloride 105 (100-108) mmol/L Carbon Dioxide 29 (21-32) mmol/L Anion Gap 6.1 (5.0-14.0) mmol/L BUN 15 (7-18) mg/dL Creatinine 1.0 (0.6-1.0) mg/dL Est Cr Clr Drug Dosing 60.06 mL/min Estimated GFR (MDRD) 59 L (>60) Glucose 118 H (74-106) mg/dL Calcium 8.5 (8.5-10.1) mg/dL Total Bilirubin 0.3 (0.2-1.0) mg/dL AST 50 H (15-37) U/L ALT 47 (12-78) U/L Alkaline Phosphatase 75 (46-116) U/L Troponin I (0.000-0.056) ng/mL Total Protein 6.4 (6.4-8.2) g/dL Albumin 2.8 L (3.4-5.0) g/dL Globulin 3.6 H (2.3-3.5) g/dL Albumin/Globulin Ratio 0.8 L (1.2-2.2) 07/08/18 07/08/18 07/09/18 Range/Units 22:16 22:16 05:00 WBC (4.5-11.0) K/uL RBC (3.30-5.50) M/uL Hgb (12.0-15.0) g/dL Hct (36.0-48.0) % MCV (80-98) fL MCH (27-31) pg MCHC (32-36) % Plt Count (150-400) K/uL Neut % (Auto) (36-66) % Lymph % (Auto) (24-44) % [place] % (Auto) (2-6) % Eos % (Auto) (2-4) % Baso % (Auto) (0-1) % D-Dimer, Quantitative 749 H (0.0-400.0) ng/mL Puncture Site L brachial ABG pH 7.378 (7.350-7.450) ABG pCO2 42.3 H (35.0-42.0) mmHg ABG pO2 63.0 L (75.0-100.0) mmHg ABG HCO3 24.4 (22.0-26.0) mmol/L ABG Total CO2 22.1 (21.0-25.0) mmol/L ABG O2 Saturation 91.6 L (95.0-98.0) % ABG O2 Content 15.6 (15.0-23.0) %vol ABG Base Excess -0.3 mm/L ABG Hemoglobin 12.3 (12.0-16.0) g/dL ABG Oxyhemoglobin 89.8 % ABG Carboxyhemoglobin 1.2 (0.0-1.6) % ABG Methemoglobin 0.8 % Sumit Test O2 Delivery Device Nasal cannula Oxygen Flow Rate 6 L Sodium (140-148) mmol/L Potassium (3.6-5.2) mmol/L Chloride (100-108) mmol/L Carbon Dioxide (21-32) mmol/L Anion Gap (5.0-14.0) mmol/L BUN (7-18) mg/dL Creatinine (0.6-1.0) mg/dL Est Cr Clr Drug Dosing mL/min Estimated GFR (MDRD) (>60) Glucose (74-106) mg/dL Calcium (8.5-10.1) mg/dL Total Bilirubin (0.2-1.0) mg/dL AST (15-37) U/L ALT (12-78) U/L Alkaline Phosphatase (46-116) U/L Troponin I < 0.017 (0.000-0.056) ng/mL Total Protein (6.4-8.2) g/dL Albumin (3.4-5.0) g/dL Globulin (2.3-3.5) g/dL Albumin/Globulin Ratio (1.2-2.2) 07/09/18 07/09/18 Range/Units 05:00 05:00 WBC 9.1 (4.5-11.0) K/uL RBC 4.28 (3.30-5.50) M/uL Hgb 12.3 (12.0-15.0) g/dL Hct 36.3 (36.0-48.0) % MCV 85 (80-98) fL MCH 29 (27-31) pg MCHC 34 (32-36) % Plt Count 202 (150-400) K/uL Neut % (Auto) 87 H (36-66) % Lymph % (Auto) 10 L (24-44) % [place] % (Auto) 2 (2-6) % Eos % (Auto) 1 L (2-4) % Baso % (Auto) 0 (0-1) % D-Dimer, Quantitative (0.0-400.0) ng/mL Puncture Site ABG pH (7.350-7.450) ABG pCO2 (35.0-42.0) mmHg ABG pO2 (75.0-100.0) mmHg ABG HCO3 (22.0-26.0) mmol/L ABG Total CO2 (21.0-25.0) mmol/L ABG O2 Saturation (95.0-98.0) % ABG O2 Content (15.0-23.0) %vol ABG Base Excess mm/L ABG Hemoglobin (12.0-16.0) g/dL ABG Oxyhemoglobin % ABG Carboxyhemoglobin (0.0-1.6) % ABG Methemoglobin % Sumit Test O2 Delivery Device Oxygen Flow Rate L Sodium 140 (140-148) mmol/L Potassium 3.8 (3.6-5.2) mmol/L Chloride 105 (100-108) mmol/L Carbon Dioxide 25 (21-32) mmol/L Anion Gap 10.2 (5.0-14.0) mmol/L BUN 13 (7-18) mg/dL Creatinine 1.0 (0.6-1.0) mg/dL Est Cr Clr Drug Dosing 60.06 mL/min Estimated GFR (MDRD) 59 L (>60) Glucose 136 H (74-106) mg/dL Calcium 8.8 (8.5-10.1) mg/dL Total Bilirubin (0.2-1.0) mg/dL AST (15-37) U/L ALT (12-78) U/L Alkaline Phosphatase (46-116) U/L Troponin I (0.000-0.056) ng/mL Total Protein (6.4-8.2) g/dL Albumin (3.4-5.0) g/dL Globulin (2.3-3.5) g/dL Albumin/Globulin Ratio (1.2-2.2) Med Orders - Current: Current Medications Acetaminophen (Tylenol) 650 mg PO Q4H PRN PRN Reason: Pain (Mild 1-3)/fever Hydrocodone Bitart/Acetaminophen ([place] 325-5 Mg) 1 tab PO Q4H PRN PRN Reason: Pain (moderate 4-6) Last Admin: 07/09/18 02:17 Dose: 1 tab Hydrocodone Bitart/Acetaminophen ([place] 325-5 Mg) 1 tab PO Q4H [facility] Albuterol (Proventil Neb Soln) 2.5 mg NEB Q2H PRN PRN Reason: Shortness Of Breath/wheezing Last Admin: 07/09/18 08:18 Dose: 2.5 mg Enoxaparin Sodium (Lovenox) 40 mg SUBCUT BEDTIME [facility] Fenofibrate (Fenofibrate) 134 mg PO DAILY [facility] Last Admin: 07/09/18 08:16 Dose: 134 mg Guaifenesin/Codeine Phosphate (Robitussin Ac) 10 ml PO Q4H PRN PRN Reason: Cough Last Admin: 07/09/18 07:34 Dose: 10 ml Levofloxacin/Dextrose 750 mg/ (Premix) 150 mls @ 100 mls/hr IV Q24H [facility] Meropenem 1 gm/ Sodium (Chloride) 100 mls @ 200 mls/hr IV Q8H [facility] Lactobacillus Rhamnosus (Culturelle) 1 cap PO BID [facility] Last Admin: 07/09/18 08:16 Dose: 1 cap Magnesium Hydroxide (Milk Of Magnesia) 30 ml PO Q12H PRN PRN Reason: Constipation Methylprednisolone Sodium Succinate (Solu-Medrol) 40 mg IVPUSH Q6H [facility] Last Admin: 07/09/18 08:14 Dose: 40 mg Ondansetron HCl (Zofran) 4 mg IV Q4H PRN PRN Reason: Nausea/Vomiting Polyethylene Glycol (Miralax) 17 gm PO DAILY PRN PRN Reason: Constipation Senna/Docusate Sodium (Senna Plus) 1 tab PO BID PRN PRN Reason: Constipation Sertraline HCl (Zoloft) 200 mg PO DAILY [facility] Last Admin: 07/09/18 08:16 Dose: 200 mg Sodium Chloride (Saline Flush) 10 ml FLUSH ASDIRECTED PRN PRN Reason: Keep Vein Open Trazodone HCl (Trazodone) 50 mg PO BEDTIME [facility] Discontinued Medications Acetaminophen (Tylenol) 650 mg PO NOW ONE Stop: 07/08/18 23:42 Last Admin: 07/08/18 23:55 Dose: 650 mg Albuterol (Proventil Neb Soln) 2.5 mg NEB ONETIME ONE Stop: 07/08/18 21:50 Last Admin: 07/08/18 21:57 Dose: 2.5 mg Albuterol/Ipratropium (Duoneb 3.0-0.5 Mg/3 Ml) 3 ml NEB ONETIME ONE Stop: 07/08/18 23:17 Last Admin: 07/08/18 23:56 Dose: 3 ml Enoxaparin Sodium (Lovenox) 40 mg SUBCUT DAILY [facility] Last Admin: 07/09/18 02:07 Dose: 40 mg Sodium Chloride (Normal Saline) 100 mls @ 3 mls/sec IV ASDIRECTED [facility] Last Admin: 07/08/18 22:49 Dose: 3 mls/sec Lactated Ringer's (Ringers, Lactated) 1,000 mls @ 125 mls/hr IV ASDIRECTED [facility] Last Admin: 07/09/18 01:38 Dose: 125 mls/hr Levofloxacin/Dextrose 750 mg/ (Premix) 150 mls @ 100 mls/hr IV Q24H [facility] Last Admin: 07/09/18 02:43 Dose: 100 mls/hr Meropenem 1 gm/ Sodium (Chloride) 100 mls @ 200 mls/hr IV Q8H [facility] Last Admin: 07/09/18 02:00 Dose: 200 mls/hr Iopamidol (Isovue-370 (76%)) 100 ml IV . DIRECTED [facility] Last Admin: 07/08/18 22:49 Dose: 100 ml Methylprednisolone Sodium Succinate (Solu-Medrol) 125 mg IVPUSH ONETIME ONE Stop: 07/08/18 23:17 Last Admin: 07/08/18 23:59 Dose: 125 mg Methylprednisolone Sodium Succinate (Solu-Medrol) 40 mg IVPUSH Q6H [facility] Last Admin: 07/09/18 02:07 Dose: 40 mg - Exam Quality Assessment: Supplemental Oxygen, DVT Prophylaxis General: Alert, Oriented, Cooperative, Moderate Distress Lungs: No: Rales, Rhonchi, Rub, Wheezing Cardiovascular: Regular Rhythm, No Murmurs, Tachycardia GI/Abdominal Exam: Soft, No Organomegaly, No Distention, Tender. No: Distended , Guarding, Rigid, Rebound Extremities: Non-Tender, No Pedal Edema Skin: Warm, Dry, Intact - Problem List Review Problem List Initiated/Reviewed/Updated: Yes - My Orders Last 24 Hours: My Active Orders 07/09/18 00:56 Resuscitation Status Routine 07/09/18 01:28 Patient Status [ADT] Routine Ambulate [RC] QID Cardiac Monitoring [RC] Q6H Height and Weight [RC] DAILY Intake and Output [RC] QSHIFT Notify Provider Vital Signs [RC] ASDIRECTED Oxygen Therapy [RC] PRN Peripheral IV Care [RC] . DIRECTED Pulse Oximetry [RC] CONTINUOUS RT Aerosol Therapy [RC] ASDIRECTED Up With Assistance [RC] ASDIRECTED Up to Chair [RC] QID VTE/DVT Education [RC] Per Unit Routine Vital Signs [RC] Q4H Acetaminophen [Tylenol] 650 mg PO Q4H PRN Acetaminophen/HYDROcodone [[place] 325-5 MG] 1 tab PO Q4H PRN Albuterol [Proventil Neb Soln] 2.5 mg NEB Q2H PRN Codeine/guaiFENesin [Robitussin AC] 10 ml PO Q4H PRN Docusate Sodium/Sennosides [Senna Plus] 1 tab PO BID PRN Magnesium Hydroxide [Milk of Magnesia] 30 ml PO Q12H PRN Ondansetron [Zofran] 4 mg IV Q4H PRN Polyethylene Glycol 3350 [MiraLAX] 17 gm PO DAILY PRN Sodium Chloride 0.9% [Saline Flush] 10 ml FLUSH ASDIRECTED PRN Blood Culture x2 Reflex Set [OM.PC] Stat Peripheral IV Insertion Adult [OM.PC] Routine 07/09/18 01:30 Lactobacillus Rhamnosus GG [Culturelle] 1 cap PO BID 07/09/18 01:35 CULTURE BLOOD [BC] Stat 07/09/18 01:40 CULTURE BLOOD [BC] Stat 07/09/18 02:30 Acetaminophen/HYDROcodone [[place] 325-5 MG] 1 tab PO Q4H 07/09/18 08:00 methylPREDNISolone Sod Succ [Solu-MEDROL] 40 mg IVPUSH Q6H 07/09/18 09:00 Fenofibrate,Micronized [Fenofibrate] 134 mg PO DAILY Sertraline [Zoloft] 200 mg PO DAILY 07/09/18 09:38 Convert IV to Saline Lock [OM.PC] Routine 07/09/18 10:00 Meropenem [Merrem] 1 gm Sodium Chloride 0.9% [Normal Saline] 100 ml IV Q8H 07/09/18 20:00 Levofloxacin/Dextrose 5%-Water [Levaquin in D5W 750 MG/150 ML] 750 mg Premix Bag 1 bag IV Q24H 07/09/18 21:00 Enoxaparin [Lovenox] 40 mg SUBCUT BEDTIME traZODone 50 mg PO BEDTIME 07/09/18 Breakfast Regular Diet [DIET] 07/10/18 05:00 BASIC METABOLIC PANEL,BMP [CHEM] Timed - Plan Plan:: ASSESSMENT AND PLAN BILATERAL PNEUMONIA-viral versus atypical versus bacterial, most likely viral given recent symptoms of upper respiratory tract infection. Complicated by reactive airway process and significant hypoxia. Normal white blood cell count and no significant temperature elevation thus far. Modest improvement in respiratory status since admission -Blood cultures pending -Broad-spectrum IV antibiotics pending culture results; IV meropenem and azithromycin -Saline lock IV ASTHMA-bilateral expiratory wheezing, no previous history of reactive airway disease -Nebulized albuterol every 2 hours as needed -Solu-Medrol 40 mg IV every 6 hours HYPOXIC RESPIRATORY COMPROMISE-secondary to bilateral infiltrates and reactive airway process -Supplemental oxygen as needed -Consider use of BiPAP if she shows any evidence of further respiratory deterioration STATUS POST LAPAROSCOPIC CHOLECYSTECTOMY MAINTENANCE ISSUES -DVT prophylaxis; Lovenox 40 mg subcutaneous daily -GI prophylaxis; not indicated -Arvizu catheter; not indicated -Nutrition; regular diet -Nicotine dependence; not required CODE STATUS-FULL CODE ADMISSION STATUS-patient will be admitted to inpatient status, expect at least a 2 night hospital stay for evaluation and management of problems as outlined above. At the time of this admission I do not reasonably expected evaluation and management of this problem will require more than a 96 hour hospital stay. DISPOSITION-anticipate discharge to home after the hospital stay. PRIMARY CARE PROVIDER-Misty Maurer
[2018-07-09] MEDS: Meropenem 1 GM in Sodium Chloride 0.9% 100 ML IV SCH ×2 (10:22→17:55)
[2018-07-09] MEDS ORDERED: Levalbuterol HCl 1.25 MG/3 ML Neb NEB PRN (11:54)
[2018-07-09] MEDS: Albuterol/Ipratropium 3.0-0.5 MG/3 ML Neb Soln NEB PRN (16:25)
[2018-07-09] MEDS: Enoxaparin 40 MG/0.4 ML Syringe SUBCUT SCH (20:44)
[2018-07-09] MEDS: traZODone 50 MG Tab PO SCH (20:44)
[2018-07-09] MEDS: Levofloxacin/Dextrose 5%-Water 750 MG in Premix Bag 1 BAG IV SCH (20:44)
[2018-07-10] MEDS: methylPREDNISolone Sodium Succinate 40 MG/1 ML SDV IVPUSH SCH ×2 (02:07→08:05)
[2018-07-10] MEDS: Meropenem 1 GM in Sodium Chloride 0.9% 100 ML IV SCH ×2 (02:07→09:44)
[2018-07-10] MEDS: Albuterol/Ipratropium 3.0-0.5 MG/3 ML Neb Soln NEB PRN ×3 (02:09→20:32)
[2018-07-10] MEDS ORDERED: Docusate Sodium 100 MG Cap PO PRN (07:22)
[2018-07-10] MEDS ORDERED: Magnesium Hydroxide 400 MG/5 ML Susp 30 ML Cup PO PRN (07:22)
--- NOTE | 2018-07-10 08:04 | PN ---
DATE OF SERVICE: 07/10/2018 SUBJECTIVE: The patient was admitted for asthma versus pneumonia this weekend. Today, she states she did quite well. Her breathing has improved significantly. She has no nausea, vomiting, shortness of breath, or chest pain. She is having bowel movements. OBJECTIVE: VITAL SIGNS: Stable. CARDIOVASCULAR: Regular rhythm and rate. RESPIRATORY: Lungs are consultation to auscultation bilaterally. ABDOMEN: Incision healing well. ASSESSMENT AND PLAN: Status post laparoscopic appendectomy. PLAN: The patient will continue to be under the care of the hospitalist service. As far as the gallbladder is concerned, she is doing quite well. I did add some Colace. She does have problems with bowel movements, however, this has not been an issue. Continue with followup appointment next week. Jayesh Alcazar MD /[id number]
[2018-07-10] MEDS: Sertraline 50 MG Tab PO SCH (09:38)
[2018-07-10] MEDS: Fenofibrate,Micronized 67 MG Cap PO SCH (09:38)
[2018-07-10] MEDS: Lactobacillus Rhamnosus GG (Probiotic) Cap PO SCH ×2 (09:38→20:31)
--- NOTE | 2018-07-10 10:02 | PCM.PN ---
- General Info Date of Service: 07/10/18 Functional Status: Reports: Pain Controlled, Tolerating Diet - Review of Systems General: Reports: Weakness Pulmonary: Reports: Shortness of Breath, Cough Systems Review Comment:: There were no acute events overnight. She reports that her shortness of breath feels a little better today. She is able to take a larger breath and feels more energetic. We have been able to wean her supplemental oxygen down to 3 L. She has not had any fevers. Her cultures remained negative. Vital signs have been stable. No complaints of nausea or abdominal pain. - Patient Data Vitals - Most Recent: Last Vital Signs Temp 35.3 C 07/10/18 02:00 Pulse 101 H 07/10/18 05:57 Resp 23 H 07/10/18 05:57 BP 130/88 07/10/18 05:57 Pulse Ox 98 07/10/18 05:57 Weight - Most Recent: 94.9 kg I&O - Last 24 Hours: Intake & Output 07/09/18 07/10/18 07/10/18 22:59 06:59 14:59 Intake Total 1230 800 Output Total 950 1200 Balance 280 -400 Lab Results Last 24 Hours: Laboratory Results - last 24 hr 07/10/18 Range/Units 05:51 Sodium 141 (140-148) mmol/L Potassium 4.2 (3.6-5.2) mmol/L Chloride 105 (100-108) mmol/L Carbon Dioxide 25 (21-32) mmol/L Anion Gap 10.6 (5.0-14.0) mmol/L BUN 10 (7-18) mg/dL Creatinine 0.8 (0.6-1.0) mg/dL Est Cr Clr Drug Dosing 75.07 mL/min Estimated GFR (MDRD) > 60 (>60) Glucose 140 H (74-106) mg/dL Calcium 8.8 (8.5-10.1) mg/dL Mario Results Last 24 Hours: Microbiology 07/09/18 01:40 Aerobic Blood Culture - Preliminary Blood - Arm, Left NO GROWTH AFTER 1 DAY Anaerobic Blood Culture - Preliminary NO GROWTH AFTER 1 DAY 07/09/18 01:35 Aerobic Blood Culture - Preliminary Blood - Arm, Left NO GROWTH AFTER 1 DAY Anaerobic Blood Culture - Preliminary NO GROWTH AFTER 1 DAY Med Orders - Current: Current Medications Acetaminophen (Tylenol) 650 mg PO Q4H PRN PRN Reason: Pain (Mild 1-3)/fever Hydrocodone Bitart/Acetaminophen (Mcclelland 325-5 Mg) 1 tab PO Q4H PRN PRN Reason: Pain (moderate 4-6) Last Admin: 07/09/18 02:17 Dose: 1 tab Albuterol (Proventil Neb Soln) 2.5 mg NEB Q2H PRN PRN Reason: Shortness Of Breath/wheezing Last Admin: 07/09/18 08:18 Dose: 2.5 mg Albuterol/Ipratropium (Duoneb 3.0-0.5 Mg/3 Ml) 3 ml NEB Q4H PRN PRN Reason: Cough Last Admin: 07/10/18 02:09 Dose: 3 ml Docusate Sodium (Colace) 100 mg PO DAILY PRN PRN Reason: Constipation Enoxaparin Sodium (Lovenox) 40 mg SUBCUT BEDTIME [facility] Last Admin: 07/09/18 20:44 Dose: 40 mg Fenofibrate (Fenofibrate) 134 mg PO DAILY [facility] Last Admin: 07/10/18 09:38 Dose: 134 mg Guaifenesin/Codeine Phosphate (Robitussin Ac) 10 ml PO Q4H PRN PRN Reason: Cough Last Admin: 07/09/18 07:34 Dose: 10 ml Levofloxacin/Dextrose 750 mg/ (Premix) 150 mls @ 100 mls/hr IV Q24H [facility] Last Admin: 07/09/18 20:44 Dose: 100 mls/hr Lactobacillus Rhamnosus (Culturelle) 1 cap PO BID [facility] Last Admin: 07/10/18 09:38 Dose: 1 cap Levalbuterol HCl (Xopenex) 1.25 mg NEB Q6H PRN PRN Reason: Shortness of Breath Magnesium Hydroxide (Milk Of Magnesia) 30 ml PO Q12H PRN PRN Reason: Constipation Magnesium Hydroxide (Milk Of Magnesia) 30 ml PO Q4H PRN PRN Reason: Constipation Ondansetron HCl (Zofran) 4 mg IV Q4H PRN PRN Reason: Nausea/Vomiting Polyethylene Glycol (Miralax) 17 gm PO DAILY PRN PRN Reason: Constipation Senna/Docusate Sodium (Senna Plus) 1 tab PO BID PRN PRN Reason: Constipation Sertraline HCl (Zoloft) 200 mg PO DAILY [facility] Last Admin: 07/10/18 09:38 Dose: 200 mg Sodium Chloride (Saline Flush) 10 ml FLUSH ASDIRECTED PRN PRN Reason: Keep Vein Open Trazodone HCl (Trazodone) 50 mg PO BEDTIME [facility] Last Admin: 07/09/18 20:44 Dose: 50 mg Discontinued Medications Acetaminophen (Tylenol) 650 mg PO NOW ONE Stop: 07/08/18 23:42 Last Admin: 07/08/18 23:55 Dose: 650 mg Albuterol (Proventil Neb Soln) 2.5 mg NEB ONETIME ONE Stop: 07/08/18 21:50 Last Admin: 07/08/18 21:57 Dose: 2.5 mg Albuterol/Ipratropium (Duoneb 3.0-0.5 Mg/3 Ml) 3 ml NEB ONETIME ONE Stop: 07/08/18 23:17 Last Admin: 07/08/18 23:56 Dose: 3 ml Enoxaparin Sodium (Lovenox) 40 mg SUBCUT DAILY [facility] Last Admin: 07/09/18 02:07 Dose: 40 mg Sodium Chloride (Normal Saline) 100 mls @ 3 mls/sec IV ASDIRECTED [facility] Last Admin: 07/08/18 22:49 Dose: 3 mls/sec Lactated Ringer's (Ringers, Lactated) 1,000 mls @ 125 mls/hr IV ASDIRECTED [facility] Last Admin: 07/09/18 01:38 Dose: 125 mls/hr Levofloxacin/Dextrose 750 mg/ (Premix) 150 mls @ 100 mls/hr IV Q24H [facility] Last Admin: 07/09/18 02:43 Dose: 100 mls/hr Meropenem 1 gm/ Sodium (Chloride) 100 mls @ 200 mls/hr IV Q8H [facility] Last Admin: 07/09/18 02:00 Dose: 200 mls/hr Meropenem 1 gm/ Sodium (Chloride) 100 mls @ 200 mls/hr IV Q8H [facility] Last Admin: 07/10/18 09:44 Dose: 200 mls/hr Iopamidol (Isovue-370 (76%)) 100 ml IV . DIRECTED [facility] Last Admin: 07/08/18 22:49 Dose: 100 ml Methylprednisolone Sodium Succinate (Solu-Medrol) 125 mg IVPUSH ONETIME ONE Stop: 07/08/18 23:17 Last Admin: 07/08/18 23:59 Dose: 125 mg Methylprednisolone Sodium Succinate (Solu-Medrol) 40 mg IVPUSH Q6H [facility] Last Admin: 07/09/18 19:35 Dose: Not Given Methylprednisolone Sodium Succinate (Solu-Medrol) 40 mg IVPUSH Q6H [facility] Last Admin: 07/10/18 08:05 Dose: 40 mg - Exam Quality Assessment: Supplemental Oxygen General: Alert, Oriented, Cooperative, No Acute Distress Lungs: Normal Respiratory Effort, Wheezing (rare inspiratory throughout). No: Crackles Cardiovascular: Regular Rate, Regular Rhythm GI/Abdominal Exam: Soft, No Distention Extremities: No Pedal Edema Skin: Warm, Dry Psy/Mental Status: Alert, Normal Affect - Problem List Review Problem List Initiated/Reviewed/Updated: Yes - My Orders Last 24 Hours: My Active Orders 07/10/18 10:00 Transfer Patient (Change bed) [ADT] Routine 07/10/18 10:01 Discontinue Telemetry Monitoring [Cardiac Monitoring Discontinue] [RC] Click to Edit May Shower [RC] ASDIRECTED 07/10/18 16:30 predniSONE 20 mg PO BIDAC 07/11/18 05:00 BASIC METABOLIC PANEL,BMP [CHEM] Timed CBC W/O DIFF,HEMOGRAM [HEME] Timed (1) - Plan Plan:: ASSESSMENT AND PLAN BILATERAL PNEUMONIA - viral versus atypical versus bacterial, most likely viral given recent symptoms of upper respiratory tract infection. There is a component of reactive airway disease. Clinically improving and we are finally able to wean her supplemental oxygen some. Cultures remain negative. -Blood cultures pending -Discontinue meropenem -Continue levofloxacin -Transition steroids to prednisone -Nebulizers -Saline lock IV HYPOXIC RESPIRATORY FAILURE - secondary to bilateral infiltrates and reactive airway process. -Supplemental oxygen as needed -Additional management as above STATUS POST LAPAROSCOPIC CHOLECYSTECTOMY - clinically doing well MAINTENANCE ISSUES -DVT prophylaxis; Lovenox 40 mg subcutaneous daily -GI prophylaxis; not indicated -Nutrition; regular diet -Nicotine dependence; not required DISPOSITION - anticipate discharge to home after the hospital stay. She is safe for transfer out of the intensive care unit today. Sabas Aranda M.D.
[2018-07-10] MEDS: predniSONE 20 MG Tab PO SCH (16:00)
[2018-07-10] MEDS: Levofloxacin/Dextrose 5%-Water 750 MG in Premix Bag 1 BAG IV SCH (20:30)
[2018-07-10] MEDS: Enoxaparin 40 MG/0.4 ML Syringe SUBCUT SCH (20:31)
[2018-07-10] MEDS: traZODone 50 MG Tab PO SCH (20:32)
[2018-07-11] MEDS: Albuterol/Ipratropium 3.0-0.5 MG/3 ML Neb Soln NEB PRN ×2 (03:20→20:36)
[2018-07-11] MEDS: Sertraline 50 MG Tab PO SCH (08:26)
[2018-07-11] MEDS: Fenofibrate,Micronized 67 MG Cap PO SCH (08:27)
[2018-07-11] MEDS: Lactobacillus Rhamnosus GG (Probiotic) Cap PO SCH ×2 (08:27→21:00)
[2018-07-11] MEDS: predniSONE 20 MG Tab PO SCH ×2 (08:27→16:38)
--- NOTE | 2018-07-11 16:27 | PCM.PN ---
- General Info Date of Service: 07/11/18 Functional Status: Reports: Pain Controlled, Tolerating Diet - Review of Systems Pulmonary: Reports: Cough. Denies: Shortness of Breath Systems Review Comment:: No acute events overnight. Down to 1 L of supplemental oxygen this morning. She does not feel short of breath but does get fatigued with activity. She has a dry cough. She has not had any fevers. Appetite has been good. - Patient Data Vitals - Most Recent: Last Vital Signs Temp 36.2 C 07/11/18 12:51 Pulse 91 07/11/18 12:51 Resp 18 07/11/18 12:51 BP 125/80 07/11/18 12:51 Pulse Ox 95 07/11/18 12:51 Weight - Most Recent: 94.9 kg I&O - Last 24 Hours: Intake & Output 07/11/18 07/11/18 07/11/18 06:59 14:59 22:59 Intake Total 240 Balance 240 Lab Results Last 24 Hours: Laboratory Results - last 24 hr 07/11/18 07/11/18 Range/Units 04:50 04:50 WBC 10.3 (4.5-11.0) K/uL RBC 4.63 (3.30-5.50) M/uL Hgb 12.7 (12.0-15.0) g/dL Hct 39.6 (36.0-48.0) % MCV 86 (80-98) fL MCH 27 (27-31) pg MCHC 32 (32-36) % Plt Count 245 (150-400) K/uL Sodium 139 L (140-148) mmol/L Potassium 3.9 (3.6-5.2) mmol/L Chloride 103 (100-108) mmol/L Carbon Dioxide 27 (21-32) mmol/L Anion Gap 12.9 (5.0-14.0) mmol/L BUN 15 (7-18) mg/dL Creatinine 0.8 (0.6-1.0) mg/dL Est Cr Clr Drug Dosing 75.62 mL/min Estimated GFR (MDRD) > 60 (>60) Glucose 111 H (74-106) mg/dL Calcium 8.9 (8.5-10.1) mg/dL Mario Results Last 24 Hours: Microbiology 07/09/18 01:40 Aerobic Blood Culture - Preliminary Blood - Arm, Left NO GROWTH AFTER 2 DAYS Anaerobic Blood Culture - Preliminary NO GROWTH AFTER 2 DAYS 07/09/18 01:35 Aerobic Blood Culture - Preliminary Blood - Arm, Left NO GROWTH AFTER 2 DAYS Anaerobic Blood Culture - Preliminary NO GROWTH AFTER 2 DAYS Med Orders - Current: Current Medications Acetaminophen (Tylenol) 650 mg PO Q4H PRN PRN Reason: Pain (Mild 1-3)/fever Hydrocodone Bitart/Acetaminophen (Jbphh 325-5 Mg) 1 tab PO Q4H PRN PRN Reason: Pain (moderate 4-6) Last Admin: 07/09/18 02:17 Dose: 1 tab Albuterol (Proventil Neb Soln) 2.5 mg NEB Q2H PRN PRN Reason: Shortness Of Breath/wheezing Last Admin: 07/09/18 08:18 Dose: 2.5 mg Albuterol/Ipratropium (Duoneb 3.0-0.5 Mg/3 Ml) 3 ml NEB Q4H PRN PRN Reason: Cough Last Admin: 07/11/18 03:20 Dose: 3 ml Docusate Sodium (Colace) 100 mg PO DAILY PRN PRN Reason: Constipation Enoxaparin Sodium (Lovenox) 40 mg SUBCUT BEDTIME [facility] Last Admin: 07/10/18 20:31 Dose: 40 mg Fenofibrate (Fenofibrate) 134 mg PO DAILY [facility] Last Admin: 07/11/18 08:27 Dose: 134 mg Guaifenesin/Codeine Phosphate (Robitussin Ac) 10 ml PO Q4H PRN PRN Reason: Cough Last Admin: 07/09/18 07:34 Dose: 10 ml Lactobacillus Rhamnosus (Culturelle) 1 cap PO BID [facility] Last Admin: 07/11/18 08:27 Dose: 1 cap Levalbuterol HCl (Xopenex) 1.25 mg NEB Q6H PRN PRN Reason: Shortness of Breath Levofloxacin (Levaquin) 250 mg PO Q24H [facility] Levofloxacin (Levaquin) 500 mg PO Q24H [facility] Magnesium Hydroxide (Milk Of Magnesia) 30 ml PO Q12H PRN PRN Reason: Constipation Magnesium Hydroxide (Milk Of Magnesia) 30 ml PO Q4H PRN PRN Reason: Constipation Ondansetron HCl (Zofran) 4 mg IV Q4H PRN PRN Reason: Nausea/Vomiting Polyethylene Glycol (Miralax) 17 gm PO DAILY PRN PRN Reason: Constipation Prednisone (Prednisone) 20 mg PO BIDAC [facility] Last Admin: 07/11/18 08:27 Dose: 20 mg Senna/Docusate Sodium (Senna Plus) 1 tab PO BID PRN PRN Reason: Constipation Sertraline HCl (Zoloft) 200 mg PO DAILY [facility] Last Admin: 07/11/18 08:26 Dose: 200 mg Sodium Chloride (Saline Flush) 10 ml FLUSH ASDIRECTED PRN PRN Reason: Keep Vein Open Trazodone HCl (Trazodone) 50 mg PO BEDTIME [facility] Last Admin: 07/10/18 20:32 Dose: 50 mg Discontinued Medications Acetaminophen (Tylenol) 650 mg PO NOW ONE Stop: 07/08/18 23:42 Last Admin: 07/08/18 23:55 Dose: 650 mg Albuterol (Proventil Neb Soln) 2.5 mg NEB ONETIME ONE Stop: 07/08/18 21:50 Last Admin: 07/08/18 21:57 Dose: 2.5 mg Albuterol/Ipratropium (Duoneb 3.0-0.5 Mg/3 Ml) 3 ml NEB ONETIME ONE Stop: 07/08/18 23:17 Last Admin: 07/08/18 23:56 Dose: 3 ml Enoxaparin Sodium (Lovenox) 40 mg SUBCUT DAILY [facility] Last Admin: 07/09/18 02:07 Dose: 40 mg Sodium Chloride (Normal Saline) 100 mls @ 3 mls/sec IV ASDIRECTED [facility] Last Admin: 07/08/18 22:49 Dose: 3 mls/sec Lactated Ringer's (Ringers, Lactated) 1,000 mls @ 125 mls/hr IV ASDIRECTED [facility] Last Admin: 07/09/18 01:38 Dose: 125 mls/hr Levofloxacin/Dextrose 750 mg/ (Premix) 150 mls @ 100 mls/hr IV Q24H [facility] Last Admin: 07/09/18 02:43 Dose: 100 mls/hr Meropenem 1 gm/ Sodium (Chloride) 100 mls @ 200 mls/hr IV Q8H [facility] Last Admin: 07/09/18 02:00 Dose: 200 mls/hr Levofloxacin/Dextrose 750 mg/ (Premix) 150 mls @ 100 mls/hr IV Q24H [facility] Last Admin: 07/10/18 20:30 Dose: 100 mls/hr Meropenem 1 gm/ Sodium (Chloride) 100 mls @ 200 mls/hr IV Q8H [facility] Last Admin: 07/10/18 09:44 Dose: 200 mls/hr Iopamidol (Isovue-370 (76%)) 100 ml IV . DIRECTED [facility] Last Admin: 07/08/18 22:49 Dose: 100 ml Methylprednisolone Sodium Succinate (Solu-Medrol) 125 mg IVPUSH ONETIME ONE Stop: 07/08/18 23:17 Last Admin: 07/08/18 23:59 Dose: 125 mg Methylprednisolone Sodium Succinate (Solu-Medrol) 40 mg IVPUSH Q6H [facility] Last Admin: 07/09/18 19:35 Dose: Not Given Methylprednisolone Sodium Succinate (Solu-Medrol) 40 mg IVPUSH Q6H [facility] Last Admin: 07/10/18 08:05 Dose: 40 mg - Exam Quality Assessment: Supplemental Oxygen General: Alert, Oriented, Cooperative, No Acute Distress Lungs: Clear to Auscultation, Normal Respiratory Effort Cardiovascular: Regular Rate, Regular Rhythm GI/Abdominal Exam: Soft, No Distention Extremities: No Pedal Edema Psy/Mental Status: Alert, Normal Affect - Problem List Review Problem List Initiated/Reviewed/Updated: Yes - My Orders Last 24 Hours: My Active Orders 07/10/18 16:30 predniSONE 20 mg PO BIDAC 07/11/18 21:00 levoFLOXacin [Levaquin] 250 mg PO Q24H levoFLOXacin [Levaquin] 500 mg PO Q24H - Plan Plan:: ASSESSMENT AND PLAN BILATERAL PNEUMONIA WITH ARDS - viral versus atypical versus bacterial, most likely viral given recent symptoms of upper respiratory tract infection. Suspect ARDS with acute worsening following surgical procedure and bilateral interstitial infiltrates noted on CT scan. Clinically improving and we are finally able to wean her supplemental oxygen some. Cultures remain negative. -Blood cultures pending -Continue levofloxacin -Continue prednisone -Nebulizers -Saline lock IV HYPOXIC RESPIRATORY FAILURE - secondary to bilateral infiltrates and reactive airway process. She is currently only receiving 1 L and we should be able to wean her off in the next 24 hours. -Supplemental oxygen as needed, wean as able -Additional management as above STATUS POST LAPAROSCOPIC CHOLECYSTECTOMY - clinically doing well MAINTENANCE ISSUES -DVT prophylaxis; Lovenox 40 mg subcutaneous daily -GI prophylaxis; not indicated -Nutrition; regular diet -Nicotine dependence; not required DISPOSITION - anticipate discharge to home after the hospital stay, likely tomorrow if stable overnight Sabas Aranda M.D.
[2018-07-11] MEDS: Codeine/guaiFENesin 100mg-10 MG/5 ML Syrup 10 ML Cup PO PRN (20:39)
[2018-07-11] MEDS ORDERED: Levofloxacin 250 MG Tab PO SCH (21:00)
[2018-07-11] MEDS: Enoxaparin 40 MG/0.4 ML Syringe SUBCUT SCH (21:00)
[2018-07-11] MEDS ORDERED: Levofloxacin 500 MG Tab PO SCH (21:00)
[2018-07-11] MEDS: traZODone 50 MG Tab PO SCH (21:00)
[2018-07-12] MEDS: predniSONE 20 MG Tab PO SCH (07:47)
[2018-07-12] MEDS: Sertraline 50 MG Tab PO SCH (08:02)
[2018-07-12] MEDS: Fenofibrate,Micronized 67 MG Cap PO SCH (08:03)
[2018-07-12] MEDS: Lactobacillus Rhamnosus GG (Probiotic) Cap PO SCH (08:03)
[2018-07-12] MEDS ORDERED: Calcium Carbonate 500 MG Tab.Chew PO ONE ×2 (09:30→09:45)
--- NOTE | 2018-07-12 10:56 | PCM.DCSUM1 ---
Discharge Summary - Hospital Course Brief History: 48-year-old female with tobacco dependence and recent cholecystectomy who presented with acute shortness of breath and hypoxia. She was admitted for management of bilateral pneumonia with hypoxic respiratory failure. Diagnosis: Stroke: No - Discharge Data Discharge Date: 07/12/18 Discharge Disposition: Home, Self-Care 01 Condition: Good - Discharge Diagnosis/Problem(s) (1) Bilateral pneumonia SNOMED Code(s): 145647933 ICD Code: J18.9 - PNEUMONIA, UNSPECIFIED ORGANISM Status: Acute Qualifiers: Pneumonia type: due to unspecified organism Lung location: unspecified part of lung Qualified Code(s): J18.9 - Pneumonia, unspecified organism (2) ARDS (adult respiratory distress syndrome) SNOMED Code(s): 17979317 ICD Code: J80 - ACUTE RESPIRATORY DISTRESS SYNDROME Status: Acute (3) Acute respiratory failure with hypoxia SNOMED Code(s): 41303919, 617113575 ICD Code: J96.01 - ACUTE RESPIRATORY FAILURE WITH HYPOXIA Status: Acute (4) Status post cholecystectomy SNOMED Code(s): 621183696, 93971956, 958402738 ICD Code: Z90.49 - ACQUIRED ABSENCE OF OTHER SPECIFIED PARTS OF DIGESTIVE TRACT Status: Acute (5) Tobacco dependence SNOMED Code(s): 33978924 ICD Code: F17.200 - NICOTINE DEPENDENCE, UNSPECIFIED, UNCOMPLICATED Status : Acute - Patient Summary/Data Labs Pending at D/C: Final results of blood cultures which are negative at the time of discharge Hospital Course: Lakesha presented to the emergency room with cough and severe shortness of breath about a day and a half after having a laparoscopic cholecystectomy. Workup in the emergency room was suggestive of severe hypoxic respiratory failure in the setting of a bilateral pneumonia and probable ARDS. Chest CT obtained in the emergency room did not show evidence for pulmonary emboli but did show diffuse bilateral groundglass and interstitial opacities. Symptoms seem to intensify after having her gallbladder removed today and a half earlier. She was started on broad-spectrum antibiotics as well as steroids and admitted to the hospital. Over the next couple of days she required high levels of supplemental oxygen but fortunately with the above management her respiratory status did stabilize and she did not require noninvasive ventilation or intubation. She was on 6 L of supplemental oxygen over the first couple of days and then we were able to slowly start to wean this down. Antibiotics were de-escalated to just levofloxacin and steroids were transitioned to prednisone. She had ongoing improvement. She has not had any fevers. All of her cultures have been negative so far. Over the course of several days we are able to wean her off of the supplemental oxygen and she has maintained adequate oxygenation on room air. Initially there was some concern that she may have a component of asthma or reactive airway disease but I suspect that the wheezing was related to bronchospasm from the ARDS type syndrome. She is very interested in tobacco cessation and thinks that she can do this cold turkey since she's had several days in the hospital over a from her cigarettes. She'll be discharged home with 4 more days of antibiotic therapy and 2 more days of steroid therapy. She will be following up in approximately one week. - Patient Instructions Diet: Regular Diet as Tolerated Activity: As Tolerated Driving: May Drive Today Showering/Bathing: May Shower Notify Provider of: Fever, Increased Pain, Nausea and/or Vomiting Other/Special Instructions: 1. You were in the hospital for management of bilateral pneumonia. We did not determine a causative organism for the infection. I do recommend four additional doses of antibiotic therapy. You should take levofloxacin 750 mg at bedtime with your next dose due tonight. You should also take prednisone 20 mg daily for 2 more doses with your next dose being due tomorrow morning. This is an anti-inflammatory that will help speed up the healing process. 2. Continue your usual home medications as previously prescribed. 3. Seek medical attention if you fever greater than 101, severe shortness of breath or sudden onset of chest pain. - Discharge Plan *PRESCRIPTION DRUG MONITORING PROGRAM REVIEWED*: Not Applicable *COPY OF PRESCRIPTION DRUG MONITORING REPORT IN PATIENT DYANA: Not Applicable Prescriptions/Med Rec: Levofloxacin 750 mg PO BEDTIME #4 tablet predniSONE 20 mg PO DAILY #2 tablet Home Medications: Home Meds Fenofibrate Nanocrystallized [Fenofibrate] 145 mg PO DAILY 10/09/17 [History] Sertraline HCl [Zoloft] 200 mg PO DAILY 10/09/17 [History] traZODone 50 mg PO BEDTIME 10/09/17 [History] diphenhydrAMINE HCl [Benadryl Allergy] 25 mg PO ASDIRECTED PRN 05/19/18 [History ] Hydrocodone/Acetaminophen [Hydrocodon-Acetaminophen 5-325] 1 tab PO Q4H PRN [History] Levofloxacin 750 mg PO BEDTIME #4 tablet 07/12/18 [Rx] predniSONE 20 mg PO DAILY #2 tablet 07/12/18 [Rx] Patient Handouts: Levofloxacin tablets, Community-Acquired Pneumonia, Adult Referrals: Misty Maurer RN [Primary Care Provider] - 07/17/18 8:00 am (f/u as needed after the hospital stay ) - Discharge Summary/Plan Comment DC Time >30 min.: No - Patient Data Vitals - Most Recent: Last Vital Signs Temp 36.6 C 07/12/18 07:45 Pulse 91 07/12/18 07:45 Resp 18 07/12/18 07:45 BP 115/83 07/12/18 07:45 Pulse Ox 95 07/12/18 07:45 Weight - Most Recent: 94.9 kg I&O - Last 24 hours: Intake & Output 07/11/18 07/12/18 07/12/18 22:59 06:59 14:59 Intake Total 370 300 360 Balance 370 300 360 WILLIS Results - Last 24 hrs: Microbiology 07/09/18 01:40 Aerobic Blood Culture - Preliminary Blood - Arm, Left NO GROWTH AFTER 3 DAYS Anaerobic Blood Culture - Preliminary NO GROWTH AFTER 3 DAYS 07/09/18 01:35 Aerobic Blood Culture - Preliminary Blood - Arm, Left NO GROWTH AFTER 3 DAYS Anaerobic Blood Culture - Preliminary NO GROWTH AFTER 3 DAYS Med Orders - Current: Current Medications Acetaminophen (Tylenol) 650 mg PO Q4H PRN PRN Reason: Pain (Mild 1-3)/fever Hydrocodone Bitart/Acetaminophen (Villalba 325-5 Mg) 1 tab PO Q4H PRN PRN Reason: Pain (moderate 4-6) Last Admin: 07/09/18 02:17 Dose: 1 tab Albuterol (Proventil Neb Soln) 2.5 mg NEB Q2H PRN PRN Reason: Shortness Of Breath/wheezing Last Admin: 07/09/18 08:18 Dose: 2.5 mg Albuterol/Ipratropium (Duoneb 3.0-0.5 Mg/3 Ml) 3 ml NEB Q4H PRN PRN Reason: Cough Last Admin: 07/11/18 20:36 Dose: 3 ml Docusate Sodium (Colace) 100 mg PO DAILY PRN PRN Reason: Constipation Enoxaparin Sodium (Lovenox) 40 mg SUBCUT BEDTIME [facility] Last Admin: 07/11/18 21:00 Dose: 40 mg Fenofibrate (Fenofibrate) 134 mg PO DAILY [facility] Last Admin: 07/12/18 08:03 Dose: 134 mg Guaifenesin/Codeine Phosphate (Robitussin Ac) 10 ml PO Q4H PRN PRN Reason: Cough Last Admin: 07/11/18 20:39 Dose: 10 ml Lactobacillus Rhamnosus (Culturelle) 1 cap PO BID [facility] Last Admin: 07/12/18 08:03 Dose: 1 cap Levalbuterol HCl (Xopenex) 1.25 mg NEB Q6H PRN PRN Reason: Shortness of Breath Levofloxacin (Levaquin) 250 mg PO Q24H [facility] Last Admin: 07/11/18 21:00 Dose: 250 mg Levofloxacin (Levaquin) 500 mg PO Q24H [facility] Last Admin: 07/11/18 21:00 Dose: 500 mg Magnesium Hydroxide (Milk Of Magnesia) 30 ml PO Q4H PRN PRN Reason: Constipation Ondansetron HCl (Zofran) 4 mg IV Q4H PRN PRN Reason: Nausea/Vomiting Polyethylene Glycol (Miralax) 17 gm PO DAILY PRN PRN Reason: Constipation Prednisone (Prednisone) 20 mg PO BIDAC [facility] Last Admin: 07/12/18 07:47 Dose: 20 mg Senna/Docusate Sodium (Senna Plus) 1 tab PO BID PRN PRN Reason: Constipation Sertraline HCl (Zoloft) 200 mg PO DAILY [facility] Last Admin: 07/12/18 08:02 Dose: 200 mg Sodium Chloride (Saline Flush) 10 ml FLUSH ASDIRECTED PRN PRN Reason: Keep Vein Open Trazodone HCl (Trazodone) 50 mg PO BEDTIME [facility] Last Admin: 07/11/18 21:00 Dose: 50 mg Discontinued Medications Acetaminophen (Tylenol) 650 mg PO NOW ONE Stop: 07/08/18 23:42 Last Admin: 07/08/18 23:55 Dose: 650 mg Albuterol (Proventil Neb Soln) 2.5 mg NEB ONETIME ONE Stop: 07/08/18 21:50 Last Admin: 07/08/18 21:57 Dose: 2.5 mg Albuterol/Ipratropium (Duoneb 3.0-0.5 Mg/3 Ml) 3 ml NEB ONETIME ONE Stop: 07/08/18 23:17 Last Admin: 07/08/18 23:56 Dose: 3 ml Calcium Carbonate/Glycine (Tums) 1,000 mg PO ONETIME ONE Stop: 07/12/18 09:31 Calcium Carbonate/Glycine (Tums) 1,000 mg PO ONETIME ONE Stop: 07/12/18 09:46 Last Admin: 07/12/18 09:42 Dose: 1,000 mg Enoxaparin Sodium (Lovenox) 40 mg SUBCUT DAILY [facility] Last Admin: 07/09/18 02:07 Dose: 40 mg Sodium Chloride (Normal Saline) 100 mls @ 3 mls/sec IV ASDIRECTED [facility] Last Admin: 07/08/18 22:49 Dose: 3 mls/sec Lactated Ringer's (Ringers, Lactated) 1,000 mls @ 125 mls/hr IV ASDIRECTED [facility] Last Admin: 07/09/18 01:38 Dose: 125 mls/hr Levofloxacin/Dextrose 750 mg/ (Premix) 150 mls @ 100 mls/hr IV Q24H [facility] Last Admin: 07/09/18 02:43 Dose: 100 mls/hr Meropenem 1 gm/ Sodium (Chloride) 100 mls @ 200 mls/hr IV Q8H [facility] Last Admin: 07/09/18 02:00 Dose: 200 mls/hr Levofloxacin/Dextrose 750 mg/ (Premix) 150 mls @ 100 mls/hr IV Q24H [facility] Last Admin: 07/10/18 20:30 Dose: 100 mls/hr Meropenem 1 gm/ Sodium (Chloride) 100 mls @ 200 mls/hr IV Q8H [facility] Last Admin: 07/10/18 09:44 Dose: 200 mls/hr Iopamidol (Isovue-370 (76%)) 100 ml IV . DIRECTED [facility] Last Admin: 07/08/18 22:49 Dose: 100 ml Methylprednisolone Sodium Succinate (Solu-Medrol) 125 mg IVPUSH ONETIME ONE Stop: 07/08/18 23:17 Last Admin: 07/08/18 23:59 Dose: 125 mg Methylprednisolone Sodium Succinate (Solu-Medrol) 40 mg IVPUSH Q6H [facility] Last Admin: 07/09/18 19:35 Dose: Not Given Methylprednisolone Sodium Succinate (Solu-Medrol) 40 mg IVPUSH Q6H [facility] Last Admin: 07/10/18 08:05 Dose: 40 mg - Exam Quality Assessment: Denies: Supplemental Oxygen General: Reports: Alert, Oriented, Cooperative, No Acute Distress Lungs: Reports: Normal Respiratory Effort Cardiovascular: Reports: Regular Rate, Regular Rhythm GI/Abdominal Exam: Soft, No Distention Extremities: No Pedal Edema Psy/Mental Status: Reports: Alert, Normal Affect
== END 2018-07-12 11:40 | disposition home or self-care (01) | DRG 139 ==
LOC: JP.ED 21:21 → JP.ICU 07-09 00:54 → JP.MS 07-11 12:43
PROVIDERS: ADMIT Hospitalist; ATTEND Internal Medicine
DX: J18.9 Pneumonia, unspecified organism (principal); F17.210 Nicotine dependence, cigarettes, uncomplicated; J96.01 Acute respiratory failure with hypoxia; Z98.890 Other specified postprocedural states; F32.9 Major depressive disorder, single episode, unspecified; F41.9 Anxiety disorder, unspecified; H54.7 Unspecified visual loss; Z88.1 Allergy status to other antibiotic agents; Z88.0 Allergy status to penicillin; Z91.048 Other nonmedicinal substance allergy status; Z90.49 Acquired absence of other specified parts of digestive tract; J98.01 Acute bronchospasm; Z79.52 Long term (current) use of systemic steroids
CPT/HCPCS: 36415; 36600; 71275; 80048; 80053; 82803; 84484; 85025; 85027; 85379; 87040; 93005; 94640; 96374; 99285-25; A9270-GY; J1650; J1956; J2185; J2920; J2930; J7030; J7120; J7620-GY; Q9967

== ENCOUNTER 2019-10-11 10:07 | Emergency (ER) | payer BC ==
--- NOTE | 2019-10-11 11:20 | EDM.PDOC ---
ED HPI GENERAL MEDICAL PROBLEM - General Chief Complaint: Neck Problem Stated Complaint: NECK PAIN, RIGHT ARM NUMB Time Seen by Provider: 10/11/19 11:16 Source of Information: Reports: Patient History Limitations: Reports: No Limitations - History of Present Illness INITIAL COMMENTS - FREE TEXT/NARRATIVE: pt arrived with marked increase in pain in the rt arm and rt post cervical area. She has numbness in the rt arm and she feels like the strength is decreased in the hand. She has not been able to rest because of the pain. She has had trigger point injections and that worked for about 4 days and the pain returned with a vengenace. She has not had any acute injury. Onset: Other ( The pain has been much worse in the last 3-4 days. ) Duration: Hour(s): Location: Reports: Neck, Upper Extremity, Right, Other ( numbness and weakness in the rt upper arm. ) Associated Symptoms: Reports: No Other Symptoms Neck Pain Score (Numeric/FACES): 9 - Related Data Allergies Allergy/AdvReac Type Severity Reaction Status Date / Time nitrofurantoin Allergy Rash Verified 10/11/19 10:28 [From Macrobid] Penicillins Allergy Hives Verified 10/11/19 10:28 pseudoephedrine Allergy Hives Verified 10/11/19 10:28 [From Sudafed] sulfamethoxazole Allergy Hives Verified 10/11/19 10:28 [From Bactrim] trimethoprim [From Bactrim] Allergy Hives Verified 10/11/19 10:28 metal Allergy Rash Uncoded 10/11/19 10:28 Home Meds: Home Meds Fenofibrate Nanocrystallized [Fenofibrate] 145 mg PO DAILY 10/09/17 [History] Sertraline HCl [Zoloft] 200 mg PO DAILY 10/09/17 [History] traZODone 50 mg PO BEDTIME 10/09/17 [History] diphenhydrAMINE HCl [Benadryl Allergy] 25 mg PO ASDIRECTED PRN 05/19/18 [History ] Celecoxib [CeleBREX] 400 mg PO BID 09/26/19 [History] busPIRone [Buspar] 10 mg PO BID 09/26/19 [History] Past Medical History HEENT History: Reports: Impaired Vision Gastrointestinal History: Reports: Cholelithiasis, Hiatal Hernia Genitourinary History: Reports: None 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 bladder sling Social & Family History - Family History Family Medical History: Noncontributory - Tobacco Use Smoking Status *Q: Former Smoker Used Tobacco, but Quit: Yes Month/Year Tobacco Last Used: 07/09/2018 - Caffeine Use Caffeine Use: Reports: None - Recreational Drug Use Recreational Drug Use: No ED ROS GENERAL - Review of Systems Review Of Systems: See Below Constitutional: Reports: No Symptoms HEENT: Reports: No Symptoms Respiratory: Reports: No Symptoms Cardiovascular: Reports: No Symptoms Endocrine: Reports: No Symptoms GI/Abdominal: Reports: No Symptoms : Reports: No Symptoms Musculoskeletal: Reports: Neck Pain, Other (pt is having severe rt cervical pain with radicular pain down the rt arm. She has numbness in the rt arm. She has weakness in the rt hand. ) ED EXAM, UPPER BACK/NECK PAIN - Physical Exam Exam: See Below Text/Narrative:: pt arrived with severe rt cervical pain. She has weakness in the rt hand and numbness in the rt arm. She is not able to rest and the pain has increased markedly. Exam Limited By: No Limitations General Appearance: Alert, Anxious, Moderate Distress Ears Exam: Normal TMs Nose Exam: Normal Inspection Throat/Mouth Exam: Normal Inspection Head Exam: Atraumatic Neck Exam: Tender Lateral, Other (pt has marked tenderness in the rt post cervical area. she has weakness in the rt hand and the rt arm is numb. ) Cardiovascular/Respiratory: Regular Rate, Rhythm GI/Abdominal: Soft, Non-Tender (Female) Exam: Deferred Rectal (Female) Exam: Deferred Back Exam: Normal Inspection Extremities: Arm Pain, Other ( wekness in rt hand. ) Neurologic: Alert, Oriented x 3 Course - Vital Signs Last Recorded V/S: Last Vital Signs Temp 35.6 C 10/11/19 10:27 Pulse 113 H 10/11/19 12:27 Resp 16 10/11/19 12:27 BP 118/81 10/11/19 12:27 Pulse Ox 97 10/11/19 12:27 - Orders/Labs/Meds Meds: Medications Discontinued Medications Generic Name Dose Route Start Last Admin Trade Name Irma PRN Reason Stop Dose Admin Baclofen 10 mg 10/11/19 11:21 10/11/19 11:30 Lioresal PO 10/11/19 11:22 10 mg ONETIME ONE Administration Hydromorphone HCl 0.5 mg 10/11/19 11:21 10/11/19 11:30 Dilaudid IM 10/11/19 11:22 0.5 mg ONETIME ONE Administration - Re-Assessments/Exams Free Text/Narrative Re-Assessment/Exam: 10/11/19 12:55 mri of the cervical spine showed a disc extrusion at c6 with c6 nerve root pressure Departure - Departure Time of Disposition: 12:43 Disposition: Home, Self-Care 01 Condition: Fair Clinical Impression: Cervical nerve root impingement, Cervical disc disorder at C5-C6 level with radiculopathy - Discharge Information Instructions: Cervical Radiculopathy, [id number] Referrals: Jess Jameson CNM [Primary Care Provider] - Forms: ED Department Discharge Care Plan Goals: give a copy of the MRI report to the pt to take to Jess Sánchez.-=- Pt needs a referal to neural surgery. cont with the steriods that Jess perscribed for the pt, baclofen 10 ng bid, Percocet 5/325 q6h prn for pain # 12. Sepsis Event Note - Evaluation Sepsis Screening Result: No Definite Risk - Focused Exam Date Exam was Performed: 10/15/19 Time Exam was Performed: 07:48
[2019-10-11] MEDS ORDERED: Baclofen 10 MG Tab PO ONE (11:21)
[2019-10-11] MEDS ORDERED: HYDROmorphone 0.5 MG/0.5 ML Syringe IM ONE (11:21)
--- NOTE | 2019-10-11 12:29 | CRLMR ---
INDICATION: Neck pain. Right arm numbness. TECHNIQUE: Multiplanar multisequence noncontrast MR images were obtained through the cervical spine. COMPARISON: None. FINDINGS: Mild reversal of the cervical lordosis centered at C5. Mild leftward cervical curvature. Vertebral heights are preserved. No acute fracture or spondylolisthesis. No concerning bone marrow signal abnormalities. The cervical cord is normal in signal intensity. C2-3: No spinal canal or neural foraminal narrowing. C3-4: No spinal canal or neural foraminal narrowing. C4-5: Shallow annular bulge. No spinal canal or neural foraminal narrowing. C5-6: Broad-based right subarticular disc extrusion measuring 5 mm in short axis and demonstrating slight cephalad and caudal migration indents the right hemicord, mildly narrows the spinal canal, and likely impinges the right C6 nerve root. The left neural foramen is patent. C6-7: No spinal canal or neural foraminal narrowing. C7-T1: Mild right facet arthropathy. No spinal canal or neural foraminal narrowing. T1-2: No spinal canal or neural foraminal narrowing. Mildly enlarged, elongated right level IIa lymph node measuring 16 mm. IMPRESSION: 1. At C5-6, right subarticular disc extrusion likely impinges the right C6 nerve root. Mild narrowing of the spinal canal. 2. Mild reversal of the cervical lordosis and mild leftward cervical curvature. 3. Mildly enlarged right level IIa lymph node is nonspecific, though demonstrates elongated morphology and may be reactive. Dictated by Keron Elizabeth MD @ Oct 11 2019 12:14PM Signed by Dr. Keron Elizabeth @ Oct 11 2019 12:26PM
== END 2019-10-11 13:08 | disposition home or self-care (01) ==
LOC: JP.ED 10:07
DX: G54.2 Cervical root disorders, not elsewhere classified (principal); Z88.8 Allergy status to other drugs, medicaments and biological substances; Z88.0 Allergy status to penicillin; Z88.2 Allergy status to sulfonamides; Z91.048 Other nonmedicinal substance allergy status; Z79.899 Other long term (current) drug therapy; Z87.891 Personal history of nicotine dependence
CPT/HCPCS: 72141; 96372; 99284; A9270; J1170

== ENCOUNTER 2019-12-07 08:55 | Emergency (ER) | payer BC, OTHER ==
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
[2019-12-07] MEDS ORDERED: Acetaminophen 500 MG Tab PO ONE (09:26)
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
== END 2019-12-07 10:11 | disposition home or self-care (01) ==
LOC: JP.ED 08:55
DX: S16.1XXA Strain of muscle, fascia and tendon at neck level, initial encounter (principal); F41.9 Anxiety disorder, unspecified; F32.9 Major depressive disorder, single episode, unspecified; Z79.899 Other long term (current) drug therapy; Z88.1 Allergy status to other antibiotic agents; Z88.2 Allergy status to sulfonamides; Z88.0 Allergy status to penicillin; V87.7XXA Person injured in collision between other specified motor vehicles (traffic), initial encounter
CPT/HCPCS: 72040; 99284; A9270